=== PATIENT | female | born 1965 | race Hispanic/Latino ===

== ENCOUNTER 2016-12-20 22:14 | Emergency (ER) | payer BC ==
[2016-12-20 22:25] VITALS: BP 128/64; PULSE 88; RESP 16; TEMP 96.7; O2SAT 96
[2016-12-20] MEDS: Sodium Chloride 0.9% 1,000 ML IV STA (22:47)
--- NOTE | 2016-12-20 22:47 | ED PDOC ---
HPI: Abdomen Time Seen by Provider: 12/20/16 22:20 Chief Complaint (Nursing): Abdominal Pain Chief Complaint (Provider): abdominal pain History Per: Patient History/Exam Limitations: no limitations Onset/Duration Of Symptoms: Hrs (5) Current Symptoms Are (Timing): Still Present Location Of Pain/Discomfort: Epigastric Quality Of Discomfort: Cramping, "Pain" Associated Symptoms: Nausea, Vomiting Additional History Per: Patient Additional Complaint(s): 51 y/o female history of colon CA (s/p multiple resections, last september of this year), PCOS presents with epigastric abdominal pain x 5 hours. Patient states she has had little appetite for the last 2 weeks, but no pain. Patient notes today at 16:30 was the first time she tried to eat, a salad. Patient states shortly after that she developed epigastric abdominal pain and had multiple episodes of vomiting. Patient notes blood mixed in with the last vomiting episode. Patient states after vomiting she started experiencing "rectal spasms", which she has had in past and was controlled with Percocet but has not had any episodes in 2 weeks. Denies fever, chest pain, shortness of breath, palpitations, changes in bowel movements, dysuria, hematuria. Past Medical History Reviewed: Historical Data, Nursing Documentation, Vital Signs Vital Signs: Last Vital Signs Temp 96.7 F L 12/20/16 22:24 Pulse 88 12/20/16 22:24 Resp 16 12/20/16 22:24 BP 128/64 12/20/16 22:24 Pulse Ox 96 12/20/16 22:48 - Medical History PMH: Depression, Hypercholesterolemia, Hyperthyroidism, Hypothyroidism, Malignancy (stage 1 rectal cancer) Denies: Chronic Kidney Disease - Surgical History Surgical History: Appendectomy (1976), - Family History Family History: States: Unknown Family Hx - Home Medications Home Medications: Ambulatory Orders Medication Instructions Recorded Acetaminophen [Tylenol Extra 2 tab PO PRN PRN 03/25/16 Strength] Dicyclomine [Bentyl] 20 mg PO PRN PRN 03/25/16 Docusate [Colace] 4 cap PO TID 03/25/16 Levothyroxine [Synthroid] 88 mcg PO DAILY 03/25/16 Magnesium Hydroxide [Milk of 30 ml PO DAILY #0 oral.susp 03/25/16 Magnesia] MetFORMIN [glucoPHAGE] 1,000 mg PO DAILY 03/25/16 Nitroglycerin [Rectiv] 1 appl [place] PRN PRN 03/25/16 Oxycodone HCl/Acetaminophen 1 each PO Q6 PRN #20 tablet 03/25/16 [Percocet 5-325 mg Tablet] Patient Own Control [Patient Own 1 tab PO PRN PRN 03/25/16 Control] Sennosides [Ex-Lax Maximum 2 tab PO PRN PRN 03/25/16 Strength] Spironolactone [Aldactone] 100 mg PO DAILY 03/25/16 Dicyclomine [Bentyl] 20 mg PO TID #21 tab 12/21/16 - Allergies Allergies/Adverse Reactions: Allergies Allergy/AdvReac Type Severity Reaction Status Date / Time No Known Allergies Allergy Verified 12/21/16 00:39 Review of Systems ROS Statement: Except As Marked, All Systems Reviewed And Found Negative Gastrointestinal: Positive for: Nausea, Vomiting, Abdominal Pain Physical Exam - Reviewed Nursing Documentation Reviewed: Yes Vital Signs Reviewed: Yes - Physical Exam Appears: Positive for: Well, Non-toxic, No Acute Distress Head Exam: Positive for: ATRAUMATIC, NORMAL INSPECTION, NORMOCEPHALIC Skin: Positive for: Normal Color Eye Exam: Positive for: Normal appearance ENT: Positive for: Normal ENT Inspection Cardiovascular/Chest: Positive for: Regular Rate, Rhythm Respiratory: Positive for: Normal Breath Sounds Gastrointestinal/Abdominal: Positive for: Bowel Sounds, Soft, Tenderness ( epigastric) Back: Positive for: Normal Inspection Extremity: Positive for: Normal ROM Neurologic/Psych: Positive for: Alert, Oriented - Laboratory Results Result Diagrams: 12/20/16 22:44 12/20/16 22:55 - ECG O2 Sat by Pulse Oximetry: 96 - Progress ED Course And Treament: labs, IV fluids, IV zofran, IV pepcid, IV morphine On re-eval, patient still complaining of pain; second dose IV morphine ordered. CT abd/pelvis ordered EXAM: CT Abdomen and Pelvis With Intravenous Contrast CLINICAL HISTORY: 51 years old, female; Pain; Abdominal pain; Generalized; Prior surgery; Surgery date: 6+ months; Surgery type: Colon resection; Additional info: Abd pain, vomiting, diarrhea h/ o colon ca resectio TECHNIQUE: Axial computed tomography images of the abdomen and pelvis with intravenous contrast. This CT exam was performed using one or more of the following dose reduction techniques : automated exposure control, adjustment of the mA and/or kV according to patient size, and/ or use of iterative reconstruction technique. Coronal and sagittal reformatted images were created and reviewed. CONTRAST: 95 mL of [id number] administered intravenously. EXAM DATE/TIME: Exam ordered 12/21/2016 12:19 AM COMPARISON: CT - ABD PELVIS PO IV CONTRAST 03/25/2016 12:46:27 AM FINDINGS: Lower thorax: Small granuloma left lower lobe. ABDOMEN: Liver: Fatty liver. Gallbladder and bile ducts: Unremarkable. No calcified stones. No ductal dilation. Pancreas: Unremarkable. No mass. No ductal dilation. Spleen: Unremarkable. No splenomegaly. Adrenals: Stable left adrenal thickening probably benign. Kidneys and ureters: Unremarkable. No solid mass. No hydronephrosis. Stomach and bowel: Oral contrast medium in the colon with no evidence of obstruction. There has been a previous colon resection there are few diverticula. There are air-fluid levels in the colon consistent with history diarrhea. Appendix: Appendix not seen. PELVIS: Bladder: Unremarkable. No mass. Reproductive: Unremarkable as visualized. ABDOMEN and PELVIS: Intraperitoneal space: Unremarkable. No free air. No significant fluid collection. Bones/joints: Subtle sclerosis along the inferior margin of the T10 vertebral body is stable. No acute fracture. No dislocation. Soft tissues: Unremarkable. Vasculature: Vascular calcifications. No abdominal aortic aneurysm. Lymph nodes: Unremarkable. No enlarged lymph nodes. IMPRESSION: Oral contrast medium in the colon with no evidence of obstruction. There has been a previous colon resection . there are few diverticula. There are air-fluid levels in the colon consistent with history diarrhea. On re-eval, patient states symptoms have improved. Tolerated PO Patient states she has anti-nausea and a PPI at home, advised to continue as directed. Rx Bentyl provided. Follow up GI. Return to ED for worsening/concerning symptoms. Disposition - Clinical Impression Clinical Impression: Vomiting and diarrhea, Abdominal pain - Patient ED Disposition Is Patient to be Admitted: No Counseled Patient/Family Regarding: Studies Performed, Diagnosis, Need For Followup, Rx Given - Disposition Disposition: Routine/Home Disposition Time: 03:55 Condition: IMPROVED Additional Instructions: Call [facility] today to schedule follow up appointment. Return to ED for worsening/concerning symptoms. Prescriptions: Dicyclomine [Bentyl] 20 mg PO TID #21 tab Instructions: Gastroenteritis (ED)
[2016-12-20 23:03] LABS: BASO # 0.1 K/uL (0.0-0.2); BASO % 0.6 % (0.0-2.0); EOS # 0.2 K/uL (0.0-0.7); EOS % 2.9 % (0.0-4.0); HEMATOCRIT 43.1 % (34.0-47.0); LYMPH % 48.3 % (20.0-40.0); MEAN CELL VOLUME 85.3 fl (81.0-99.0); MEAN CORPUSCULAR HEMOGLOBIN 28.6 pg (27.0-31.0); MEAN CORPUSCULAR HGB CONC 33.5 g/dL (33.0-37.0); MEAN PLATELET VOLUME 9.3 fl (7.2-11.7); MONO # 0.9 K/uL (0.0-0.8); MONO % 10.4 % (0.0-10.0); NEUT # 3.1 K/uL (1.8-7.0); NEUT % 37.8 % (50.0-75.0); NRBC % 0.1 % (0.0-0.0); RED CELL DISTRIBUTION WIDTH 13.1 % (11.5-14.5); WHITE BLOOD COUNT 8.3 K/uL (4.8-10.8)
[2016-12-20 23:14] LABS: ALB/GLOB RATIO 1.2 (1.0-2.1); ALKALINE PHOSPHATASE 130 U/L (38-126); ALT/SGPT 25 U/L (9-52); AST/SGOT 34 U/L (14-36); BILIRUBIN,TOTAL 0.6 mg/dl (0.2-1.3); BLOOD UREA NITROGEN 11 mg/dl (7-17); CALCIUM 10.1 mg/dL (8.4-10.2); CARBON DIOXIDE 24 mmol/L (22-30); CHLORIDE 101 mmol/L (98-107); GFR AFRICAN-AMERICAN > 60; GLUCOSE,RANDOM 129 mg/dL (65-105); LIPASE 86 U/L (23-300); POTASSIUM 3.6 MMOL/L (3.6-5.0); SODIUM 143 mmol/l (132-148); TOTAL PROTEIN 8.6 G/DL (6.3-8.2)
[2016-12-21 00:20] LABS: RBC URINE 4 /hpf (0-3); URINE BACTERIA OCC (<OCC); URINE BILIRUBIN NEGATIVE (NEGATIVE); URINE BLOOD NEGATIVE (NEGATIVE); URINE CALCIUM OXALATE CRYSTALS FEW /hpf (<OCC); URINE COLOR AMBER (YELLOW); URINE GLUCOSE (UA) NEG (Normal); URINE KETONE TRACE mg/dL (NEGATIVE); URINE LEUKOCYTE ESTERASE TRACE Leu/uL (Negative); URINE PROTEIN 100 mg/dL (NEGATIVE); URINE UROBILINOGEN 0.2-1.0 mg/dL (0.2-1.0); WBC URINE 5 /hpf (0-5)
[2016-12-21] MEDS: Iohexol 240 (50 ml) PO ONE (00:24)
[2016-12-21] MEDS ORDERED: Sodium Chloride 0.9% 50 ML IV ONE (02:15)
[2016-12-21] MEDS ORDERED: Iohexol 300 100 ML IJ ONE (02:15)
--- NOTE | 2016-12-21 09:28 | CT ---
PROCEDURE: CT Abdomen and Pelvis with contrast HISTORY: Abdominal pain, vomiting, diarrhea h/o colon CA resectio COMPARISON: 03/25/2016 TECHNIQUE: CT scan of the abdomen and pelvis was performed after administration intravenous contrast. Oral contrast was administered. Coronal and sagittal reformatted images were obtained. Contrast dose: 95 mL Omnipaque 300 Radiation dose: Total exam DLP = mGy-cm. This CT exam was performed using one or more of the following dose reduction techniques: Automated exposure control, adjustment of the mA and/or kV according to patient size, and/or use of iterative reconstruction technique. FINDINGS: LOWER THORAX: The lung bases are clear. LIVER: The liver is normal in size and there is homogeneous enhancement without focal lesion. There is diffuse low-attenuation in the liver No intrahepatic biliary ductal dilatation. GALLBLADDER AND BILE DUCTS: The gallbladder is well distended without evidence of gallstones, wall thickening or pericholecystic fluid. PANCREAS: The pancreas is normal in size and there is homogeneous enhancement without ductal dilatation or focal mass. SPLEEN: The spleen is normal in size and there is homogeneous enhancement without focal lesion. ADRENALS: Both adrenal glands are normal in size without discrete nodule. KIDNEYS AND URETERS: Both kidneys are normal in size and there is homogeneous enhancement without hydronephrosis or focal mass. VASCULATURE: The aorta is normal in caliber. No aortic aneurysm. Early atherosclerotic aortoiliac calcifications. BOWEL: The small bowel loops are normal in caliber. Status post partial sigmoid colon resection. There are few left colonic diverticula. APPENDIX: Not distinctly identified. PERITONEUM: No free fluid. No free air. LYMPH NODES: No enlarged lymph nodes. BLADDER: Partially decompressed. REPRODUCTIVE: The uterus is normal in size. BONES: No acute fracture. Within normal limits for the patient's age. OTHER FINDINGS: None. IMPRESSION: Status post partial sigmoid colon resection, few colonic diverticula without CT evidence for acute diverticulitis. No evidence of bowel obstruction, wall thickening or dilatation. Hepatic steatosis. A preliminary report was provided by [facility].
--- NOTE | 2016-12-21 12:24 | CARD ---
APPROVED REPORT EKG Measurement Heart [id number] <Conclusion> Normal sinus rhythm Normal ECG
== END 2016-12-21 04:19 | disposition home or self-care (01) ==
LOC: H.ER 22:14
DX: R10.13 Epigastric pain (principal); R11.10 Vomiting, unspecified; R19.7 Diarrhea, unspecified; E78.00 Pure hypercholesterolemia, unspecified; N39.0 Urinary tract infection, site not specified; Z79.84 Long term (current) use of oral hypoglycemic drugs; Z85.038 Personal history of other malignant neoplasm of large intestine; Z85.048 Personal history of other malignant neoplasm of rectum, rectosigmoid junction, and anus; Z90.49 Acquired absence of other specified parts of digestive tract
CPT/HCPCS: 74177; 80053; 81003; 81025; 83690; 85025; 93005; 96361; 96374; 96375; 96376; 99282; J2270; J2405; J7040; Q9966; Q9967

== ENCOUNTER 2016-12-27 20:37 | Emergency (ER) | payer BC ==
[2016-12-27 20:47] VITALS: BP 152/90; PULSE 106; RESP 16; TEMP 98.5; O2SAT 100
[2016-12-27] MEDS ORDERED: Sodium Chloride 0.9% 1,000 ML IV STA (21:15)
[2016-12-27 21:51] LABS: BASO % 0.7 % (0.0-2.0); EOS # 0.2 K/uL (0.0-0.7); EOS % 3.3 % (0.0-4.0); HEMATOCRIT 38.6 % (34.0-47.0); LYMPH # 2.1 K/uL (1.0-4.3); MEAN CELL VOLUME 86.8 fl (81.0-99.0); MEAN CORPUSCULAR HEMOGLOBIN 28.6 pg (27.0-31.0); MEAN PLATELET VOLUME 8.8 fl (7.2-11.7); MONO # 0.5 K/uL (0.0-0.8); MONO % 9.4 % (0.0-10.0); NEUT # 2.2 K/uL (1.8-7.0); NEUT % 44.6 % (50.0-75.0); NRBC % 0.1 % (0.0-0.0); RED CELL DISTRIBUTION WIDTH 13.1 % (11.5-14.5)
[2016-12-27 22:08] LABS: ALB/GLOB RATIO 1.2 (1.0-2.1); ALKALINE PHOSPHATASE 108 U/L (38-126); ALT/SGPT 38 U/L (9-52); AST/SGOT 26 U/L (14-36); BILIRUBIN,TOTAL 0.4 mg/dl (0.2-1.3); BLOOD UREA NITROGEN 6 mg/dl (7-17); CALCIUM 9.3 mg/dL (8.4-10.2); CARBON DIOXIDE 28 mmol/L (22-30); CHLORIDE 103 mmol/L (98-107); GFR AFRICAN-AMERICAN > 60; GLUCOSE,RANDOM 93 mg/dL (65-105); LIPASE 67 U/L (23-300); POTASSIUM 4.1 MMOL/L (3.6-5.0); SODIUM 145 mmol/l (132-148); TOTAL PROTEIN 6.8 G/DL (6.3-8.2)
[2016-12-27 23:31] LABS: RBC URINE 1 /hpf (0-3); URINE BILIRUBIN NEGATIVE (NEGATIVE); URINE BLOOD NEGATIVE (NEGATIVE); URINE COLOR YELLOW (YELLOW); URINE GLUCOSE (UA) NEG (Normal); URINE KETONE NEGATIVE (NEGATIVE); URINE LEUKOCYTE ESTERASE NEG Leu/uL (Negative); URINE PROTEIN NEGATIVE (NEGATIVE); URINE UROBILINOGEN 0.2-1.0 mg/dL (0.2-1.0); WBC URINE 1 /hpf (0-5)
--- NOTE | 2016-12-27 23:36 | ED PDOC ---
HPI: Abdomen Time Seen by Provider: 12/27/16 20:52 Chief Complaint (Nursing): GI Problem Chief Complaint (Provider): abd pain History Per: Patient History/Exam Limitations: no limitations Onset/Duration Of Symptoms: Hrs Outside of [place] travel?: No Current Symptoms Are (Timing): Still Present Location Of Pain/Discomfort: Diffuse Additional Complaint(s): 51yo female with PMHx including colon cancer presents to the ED with c/o abdominal pain with associated v/d. Patient was at her [facility] today having an endoscopy and was told she woke up in the middle of the endoscopy and it was not able to be completed because there was too much food in her stomach. Given preliminary Dx of gastroparesis. Patient reports vomiting x3 today, non- bloody and non-bilious with diarrhea and diffuse abdominal pain upper and lower. Past Medical History Reviewed: Historical Data, Nursing Documentation, Vital Signs Vital Signs: Last Vital Signs Temp 98.5 F 12/27/16 20:42 Pulse 106 H 12/27/16 20:42 Resp 16 12/27/16 20:42 BP 152/90 H 12/27/16 20:42 Pulse Ox 100 12/28/16 02:12 - Medical History PMH: Depression, Hypercholesterolemia, Hyperthyroidism, Hypothyroidism, Malignancy (stage 1 rectal cancer) Denies: Chronic Kidney Disease - Surgical History Surgical History: Appendectomy (1976), - Family History Family History: States: No Known Family Hx - Home Medications Home Medications: Ambulatory Orders Medication Instructions Recorded Acetaminophen [Tylenol Extra 2 tab PO PRN PRN 03/25/16 Strength] Dicyclomine [Bentyl] 20 mg PO PRN PRN 03/25/16 Docusate [Colace] 4 cap PO TID 03/25/16 Levothyroxine [Synthroid] 88 mcg PO DAILY 03/25/16 Magnesium Hydroxide [Milk of 30 ml PO DAILY #0 oral.susp 03/25/16 Magnesia] MetFORMIN [glucoPHAGE] 1,000 mg PO DAILY 03/25/16 Nitroglycerin [Rectiv] 1 appl [place] PRN PRN 03/25/16 Oxycodone HCl/Acetaminophen 1 each PO Q6 PRN #20 tablet 03/25/16 [Percocet 5-325 mg Tablet] Patient Own Control [Patient Own 1 tab PO PRN PRN 03/25/16 Control] Sennosides [Ex-Lax Maximum 2 tab PO PRN PRN 03/25/16 Strength] Spironolactone [Aldactone] 100 mg PO DAILY 03/25/16 Dicyclomine [Bentyl] 20 mg PO TID #21 tab 12/21/16 Famotidine [Pepcid] 20 mg PO BID #30 tab 12/28/16 Ondansetron [Zofran] 4 mg PO Q8H #12 tab 12/28/16 - Allergies Allergies/Adverse Reactions: Allergies Allergy/AdvReac Type Severity Reaction Status Date / Time No Known Allergies Allergy Verified 12/27/16 20:40 Review of Systems ROS Statement: Except As Marked, All Systems Reviewed And Found Negative Gastrointestinal: Positive for: Vomiting, Abdominal Pain, Diarrhea Physical Exam - Reviewed Nursing Documentation Reviewed: Yes Vital Signs Reviewed: Yes - Physical Exam Appears: Positive for: Well, No Acute Distress Head Exam: Positive for: ATRAUMATIC, NORMAL INSPECTION, NORMOCEPHALIC Skin: Positive for: Normal Color, Warm, Dry Eye Exam: Positive for: Normal appearance, EOMI, PERRL ENT: Positive for: Normal ENT Inspection Neck: Positive for: Normal, Painless ROM, Supple Cardiovascular/Chest: Positive for: Regular Rate, Rhythm. Negative for: Murmur , Tachycardia Respiratory: Positive for: Normal Breath Sounds. Negative for: Wheezing, Respiratory Distress Gastrointestinal/Abdominal: Positive for: Bowel Sounds, Soft, Tenderness (mild tenderness to epigastrium ). Negative for: Guarding, Rebound Back: Positive for: Normal Inspection. Negative for: L CVA Tenderness, R CVA Tenderness Extremity: Positive for: Normal ROM. Negative for: Deformity, Swelling Neurologic/Psych: Positive for: Alert, Oriented. Negative for: Motor/Sensory Deficits - Laboratory Results Result Diagrams: 12/27/16 21:36 12/27/16 21:36 - ECG O2 Sat by Pulse Oximetry: 100 Pulse Ox Interpretation: Normal (RA) Medical Decision Making Medical Decision Makin: Impression: gastroparesis vs. gastroenteritis vs. chronic abdominal pain Plan: Labs Morphine 2mg IVP, Zofran 4mg IVP, IVF, Pepcid 20mg IVP, Reglan 10mg IVP reassess 0210: Patient feeling a lot better. Tolerating PO. Reports that Pepcid helped a lot. Patient will f/u w/ GI doctor at [place] tomorrow. Stable for d/c and return precautions given. Scribe Attestation: Documented by Imtiaz Serrano acting as a scribe for Giovani Gaona MD. Provider Scribe Attestation: All medical record entries made by the Scribe were at my direction and personally dictated by me. I have reviewed the chart and agree that the record accurately reflects my personal performance of the history, physical exam, medical decision making, and the department course for this patient. I have also personally directed, reviewed, and agree with the discharge instructions and disposition. Disposition - Clinical Impression Clinical Impression: Gastroenteritis, Abdominal pain - Patient ED Disposition Is Patient to be Admitted: No - Disposition Disposition: Routine/Home Disposition Time: 02:10 Condition: IMPROVED Additional Instructions: Please followup with your GI doctor tomorrow at [place]. Please return to the ER if the vomiting persists or any other concerning symptoms come up. Prescriptions: Famotidine [Pepcid] 20 mg PO BID #30 tab Ondansetron [Zofran] 4 mg PO Q8H #12 tab Instructions: Acute Nausea and Vomiting (ED), Abdominal Pain (ED)
[2016-12-28] MEDS ORDERED: Sodium Chloride 0.9% 1,000 ML IV STA (00:33)
== END 2016-12-28 02:30 | disposition home or self-care (01) ==
LOC: H.ER 20:37
DX: K52.9 Noninfective gastroenteritis and colitis, unspecified (principal)
CPT/HCPCS: 80053; 81003; 83690; 85025; 87086; 96361; 96374; 96375; 99282; J2270; J2405; J2765; J7040

== ENCOUNTER 2017-02-27 20:59 | Observation (INO) | payer BC ==
[2017-02-27] MEDS ORDERED: Sodium Chloride 0.9% 1,000 ML IV STA (21:15)
--- NOTE | 2017-02-27 21:43 | ED PDOC ---
HPI: Abdomen Time Seen by Provider: 02/27/17 21:12 Chief Complaint (Nursing): Abdominal Pain Chief Complaint (Provider): abd pain, chest pain, SOB History Per: Patient History/Exam Limitations: no limitations Onset/Duration Of Symptoms: Hrs (2) Outside of [place] travel?: No Current Symptoms Are (Timing): Still Present Additional Complaint(s): Nimisha Hyatt, a 51 year old female, with a past medical history of colon cancer and colon resection presents to the ED with c/o abd pain, chest pain, and SOB x 2 hours [employer]. The patient reports she had 1 episode of diarrhea yesterday and today experienced n/v every time she tried to eat. She reports that she was recently discharged on February 13 from [facility] where her treating physicians are. The patients states she was diagnosed with Kidney failure but is not on dialysis as she was told it was "temporary". Past Medical History Reviewed: Historical Data, Nursing Documentation, Vital Signs Vital Signs: Last Vital Signs Temp 97.8 F 02/27/17 21:06 Pulse 109 H 02/27/17 21:06 Resp 20 02/27/17 21:06 BP 115/78 02/27/17 21:06 Pulse Ox 100 02/28/17 01:34 - Medical History PMH: Depression, Hypercholesterolemia, Hyperthyroidism, Hypothyroidism, Malignancy (stage 1 rectal cancer) Denies: Chronic Kidney Disease Other PMH: Colon cancer - Surgical History Surgical History: Appendectomy (1976), Other surgeries: Colon resection - Family History Family History: States: Unknown Family Hx - Home Medications Home Medications: Ambulatory Orders Medication Instructions Recorded Acetaminophen [Tylenol Extra 2 tab PO PRN PRN 03/25/16 Strength] Dicyclomine [Bentyl] 20 mg PO PRN PRN 03/25/16 Docusate [Colace] 4 cap PO TID 03/25/16 Levothyroxine [Synthroid] 88 mcg PO DAILY 03/25/16 Magnesium Hydroxide [Milk of 30 ml PO DAILY #0 oral.susp 03/25/16 Magnesia] MetFORMIN [glucoPHAGE] 1,000 mg PO DAILY 03/25/16 Nitroglycerin [Rectiv] 1 appl [place] PRN PRN 03/25/16 Oxycodone HCl/Acetaminophen 1 each PO Q6 PRN #20 tablet 07/16/16 [Percocet 5-325 mg Tablet] Patient Own Control [Patient Own 1 tab PO PRN PRN 03/25/16 Control] Sennosides [Ex-Lax Maximum 2 tab PO PRN PRN 03/25/16 Strength] Spironolactone [Aldactone] 100 mg PO DAILY 03/25/16 Dicyclomine [Bentyl] 20 mg PO TID #21 tab 12/21/16 Famotidine [Pepcid] 20 mg PO BID #30 tab 12/28/16 Ondansetron [Zofran] 4 mg PO Q8H #12 tab 12/28/16 - Allergies Allergies/Adverse Reactions: Allergies Allergy/AdvReac Type Severity Reaction Status Date / Time No Known Allergies Allergy Verified 12/27/16 20:40 Review of Systems ROS Statement: Except As Marked, All Systems Reviewed And Found Negative Cardiovascular: Positive for: Chest Pain Respiratory: Positive for: Shortness of Breath Gastrointestinal: Positive for: Nausea, Vomiting, Abdominal Pain, Diarrhea Physical Exam - Reviewed Nursing Documentation Reviewed: Yes Vital Signs Reviewed: Yes - Physical Exam Appears: Positive for: Non-toxic, No Acute Distress, Uncomfortable Head Exam: Positive for: ATRAUMATIC, NORMOCEPHALIC Skin: Positive for: Warm, Dry, Pallor Eye Exam: Positive for: Normal appearance, EOMI, PERRL ENT: Positive for: Other (tacky mucous membranes ). Negative for: Pharyngeal Erythema, Tonsillar Exudate, Tonsillar Swelling Neck: Positive for: Normal, Painless ROM, Supple Cardiovascular/Chest: Positive for: Regular Rate, Rhythm, Chest Non Tender. Negative for: Tachycardia Respiratory: Positive for: Normal Breath Sounds. Negative for: Wheezing, Respiratory Distress Gastrointestinal/Abdominal: Positive for: Bowel Sounds, Soft, Tenderness ( Diffuse abdominal tenderness.) Back: Positive for: Normal Inspection Extremity: Positive for: Normal ROM. Negative for: Tenderness, Pedal Edema, Deformity, Swelling Neurologic/Psych: Positive for: Alert, Oriented, Mood/Affect (anxious), Gait - Laboratory Results Result Diagrams: 02/27/17 21:48 02/27/17 21:48 - ECG O2 Sat by Pulse Oximetry: 100 (RA) Pulse Ox Interpretation: Normal Medical Decision Making Medical Decision Makin:12 Initial Impression: 51 year old female presenting with chest pain and abdominal pain in setting of known colon CA Initial Plan: * EKG * CMP * Lipase * Troponin 1 * Upreg * Udip * CBC * CXR * Morphine 4mg IVP * NS 1000mls IV 1000mls/hr * Pepcid 20mg IV * Zofran 4mg IV * Accucheck * Urinalysis * Reevaluation 2229: Son now at bedside and provided additional hx. Son states he believes mother is experiencing opiate withdrawal and surreptitiously takes opiates based on how she has been behaving. Labs reviewed, show low CO2 consistent with dehydration. Patient verbalized chest discomfort. CT chest and A/P ordered. 0116: CT angio chest impression: No pulmonary embolism. 0118: CT A/P impression: 1. Large volume of stool in the rectum consistent with constipation. 2. Fluid in the right colon consistent with diarrhea. 0128: UDS reviewed with patient who states she takes adderall for ADHD, percocet for pain, and xanax for anxiety accounting for positives found on UDS. Patient will be placed on obs status for dehydration and chest pain. Case referred to Dr. Willingham for observation placement. Dx: dehydration, chest pain fair - Scribe Attestation Documented by Verónica Contreras and Imtiaz Zaragoza acting as scribes for Levi Romero MD. Provider Attestation: All medical record entries made by the Scribe were at my direction and personally dictated by me. I have reviewed the chart and agree that the record accurately reflects my personal performance of the history, physical exam, medical decision making, and the department course for this patient. I have also personally directed, reviewed, and agree with the discharge instructions and disposition. Disposition - Clinical Impression Clinical Impression: Dehydration, Chest pain - Disposition Disposition Time: 23:30 Condition: FAIR - Pt Status Changed To: Hospital Disposition Of: Observation
[2017-02-27 22:01] LABS: BASO % 0.5 % (0.0-2.0); EOS # 0.1 K/uL (0.0-0.7); EOS % 0.8 % (0.0-4.0); HEMATOCRIT 43.1 % (34.0-47.0); LYMPH % 43.9 % (20.0-40.0); MEAN CELL VOLUME 88.1 fl (81.0-99.0); MEAN CORPUSCULAR HGB CONC 32.9 g/dL (33.0-37.0); MEAN PLATELET VOLUME 9.8 fl (7.2-11.7); MONO # 0.4 K/uL (0.0-0.8); MONO % 4.8 % (0.0-10.0); NEUT # 4.6 K/uL (1.8-7.0); NRBC % 0.1 % (0.0-0.0); RED CELL DISTRIBUTION WIDTH 14.6 % (11.5-14.5); WHITE BLOOD COUNT 9.1 K/uL (4.8-10.8)
[2017-02-27 22:25] LABS: ALB/GLOB RATIO 1.3 (1.0-2.1); ALKALINE PHOSPHATASE 190 U/L (38-126); ALT/SGPT 21 U/L (9-52); AST/SGOT 46 U/L (14-36); BILIRUBIN,TOTAL 1.6 mg/dl (0.2-1.3); BLOOD UREA NITROGEN 21 mg/dl (7-17); CALCIUM 10.7 mg/dL (8.4-10.2); CARBON DIOXIDE 14 mmol/L (22-30); CHLORIDE 102 mmol/L (98-107); GFR AFRICAN-AMERICAN 52; GLUCOSE,RANDOM 145 mg/dL (65-105); LIPASE 58 U/L (23-300); SODIUM 138 mmol/l (132-148); TOTAL PROTEIN 9.6 G/DL (6.3-8.2)
[2017-02-27 22:31] LABS: POTASSIUM 5.4 MMOL/L (3.6-5.0)
[2017-02-27] MEDS ORDERED: Iohexol 240 (50 ml) PO ONE (22:34)
[2017-02-28] MEDS ORDERED: Sodium Chloride 0.9% 1,000 ML IV STA (00:58)
[2017-02-28 01:13] LABS: RBC URINE 2 /hpf (0-3); URINE BACTERIA RARE (<OCC); URINE BILIRUBIN NEGATIVE (NEGATIVE); URINE BLOOD NEGATIVE (NEGATIVE); URINE COLOR YELLOW (YELLOW); URINE GLUCOSE (UA) NEG (Normal); URINE KETONE 20 mg/dL (NEGATIVE); URINE LEUKOCYTE ESTERASE SMALL Leu/uL (Negative); URINE PROTEIN NEGATIVE (NEGATIVE); URINE UROBILINOGEN 0.2-1.0 mg/dL (0.2-1.0); WBC URINE 6 /hpf (0-5)
--- NOTE | 2017-02-28 08:02 | CT ---
PROCEDURE: CT Chest with contrast (Pulmonary Angiogram) HISTORY: chest pain r/o PE COMPARISON: None available. TECHNIQUE: Axial computed tomography images were obtained of the chest in the pulmonary arterial phase of enhancement. Coronal and sagittal reformatted images were created and reviewed. Intravenous contrast dose: 95 cc 3 Visipaque 320 Radiation dose: Total exam DLP = mGy-cm. This CT exam was performed using one or more of the following dose reduction techniques: Automated exposure control, adjustment of the mA and/or kV according to patient size, and/or use of iterative reconstruction technique. FINDINGS: PULMONARY ARTERIES: Unremarkable. No pulmonary embolism. AORTA: No acute findings. No thoracic aortic aneurysm. LUNGS: Unremarkable. No nodule, mass or pulmonary consolidation. PLEURAL SPACES: Unremarkable. No effusion or pneuomothorax. HEART: Unremarkable. No cardiomegaly. No significant pericardial effusion. LYMPH NODES: No lymphadenopathy. BONES, CHEST WALL: Unremarkable. No fracture or destructive lesion OTHER FINDINGS: Unremarkable. IMPRESSION: Unremarkable CT pulmonary angiogram. No pulmonary embolus.
--- NOTE | 2017-02-28 08:11 | CT ---
PROCEDURE: CT Abdomen and Pelvis with contrast HISTORY: abd pain/diarrhea COMPARISON: 12/21/2016 TECHNIQUE: Contrast dose: 95 cc Visipaque 320 Radiation dose: Total exam DLP = 1216.7 mGy-cm. (This is with also the pulmonary angio chest CTA exam) This CT exam was performed using one or more of the following dose reduction techniques: Automated exposure control, adjustment of the mA and/or kV according to patient size, and/or use of iterative reconstruction technique. FINDINGS: LOWER THORAX: Unremarkable. LIVER: Unremarkable. No gross lesion or ductal dilatation. GALLBLADDER AND BILE DUCTS: Unremarkable. PANCREAS: Unremarkable. No gross lesion or ductal dilatation. SPLEEN: Unremarkable. ADRENALS: Unremarkable. No mass. KIDNEYS AND URETERS: Unremarkable. No hydronephrosis. No solid mass. VASCULATURE: Unremarkable. No aortic aneurysm. BOWEL: Fluid and stool in the cecum. No obstruction. No gross mural thickening. Sigmoid anastomotic sutures noted consistent with surgical intervention -similar-appearing APPENDIX: Not identified PERITONEUM: Minimal amount of free fluid in the right cul-de-sac - this may be physiologic in this 51-year-old female. No free air. LYMPH NODES: Unremarkable. No enlarged lymph nodes. BLADDER: Unremarkable. REPRODUCTIVE: Unremarkable. BONES: No acute fracture. OTHER FINDINGS: None. IMPRESSION: No bowel obstruction. Fluid-filled and stool filled cecum No pericolonic inflammatory changes here. . No diverticulitis. No gross mass seen. Prior sigmoid postsurgical changes Preliminary report provided by Krissy strange
--- NOTE | 2017-02-28 09:19 | RAD ---
HISTORY: SOB COMPARISON: No prior. FINDINGS: LUNGS: No active pulmonary disease. 2 to 3 mm granuloma at the right lung apex is suggested. The angio chest PE study started below this level. With attention to the pulmonary pulmonary arteries PLEURA: No significant pleural effusion identified, no pneumothorax apparent. CARDIOVASCULAR: Normal. OSSEOUS STRUCTURES: Dextroscoliosis VISUALIZED UPPER ABDOMEN: Normal. OTHER FINDINGS: None. IMPRESSION: 2 to 3 mm right apical granuloma most likely. Consider comparison with any outside exams to ensure stability. This area is above the axial plane for recurrent angio chest PE study and hence not assessed on that exam No consolidation, pleural effusion or thickening. Dextroscoliosis
[2017-02-28] MEDS ORDERED: Oxycodone/Acetaminophen 5/325 mg Tab PO PRN (12:30)
[2017-02-28] MEDS ORDERED: Simethicone 80 mg Chewtab PO PRN (14:26)
[2017-02-28] MEDS: Levothyroxine 88 MCG TAB PO SCH (14:50)
--- NOTE | 2017-02-28 15:36 | CARD ---
APPROVED REPORT EKG Measurement Heart [id number] [id number] <Conclusion> Sinus rhythm with marked sinus arrhythmia Otherwise normal ECG
[2017-02-28 16:11] LABS: BLOOD UREA NITROGEN 11 mg/dl (7-17); CALCIUM 9.9 mg/dL (8.4-10.2); CARBON DIOXIDE 20 mmol/L (22-30); CHLORIDE 107 mmol/L (98-107); GFR AFRICAN-AMERICAN > 60; GLUCOSE,RANDOM 96 mg/dL (65-105); SODIUM 141 mmol/l (132-148)
[2017-02-28] MEDS: Sodium Chloride 0.9% 1,000 ML IV SCH (16:30)
[2017-03-01 00:07] VITALS: RESP 18
[2017-03-01 02:08] LABS: RBC URINE 1 /hpf (0-3); URINE BILIRUBIN NEGATIVE (NEGATIVE); URINE BLOOD NEGATIVE (NEGATIVE); URINE COLOR STRAW (YELLOW); URINE GLUCOSE (UA) NEG (Normal); URINE KETONE TRACE mg/dL (NEGATIVE); URINE LEUKOCYTE ESTERASE NEG Leu/uL (Negative); URINE PROTEIN NEGATIVE (NEGATIVE); URINE UROBILINOGEN 0.2-1.0 mg/dL (0.2-1.0); WBC URINE < 1 /hpf (0-5)
[2017-03-01] MEDS: Sodium Chloride 0.9% 1,000 ML IV SCH (05:38)
[2017-03-01] MEDS: Levothyroxine 88 MCG TAB PO SCH (08:48)
[2017-03-01] MEDS ORDERED: Magnesium Hydroxide Susp 30 ml UD PO SCH (09:00)
[2017-03-01 13:11] VITALS: BP 104/65; PULSE 85; TEMP 97.9; O2SAT 97
--- NOTE | 2017-03-01 17:28 | CP.PCM.PN ---
Subjective - Date & Time of Evaluation Date of Evaluation: 03/01/17 Time of Evaluation: 10:40 - Subjective Subjective: feels better Objective - Vital Signs/Intake and Output Vital Signs (last 24 hours): Temp Pulse Resp BP Pulse Ox 97.9 F 85 18 104/65 97 03/01/17 13:00 03/01/17 13:00 03/01/17 13:00 03/01/17 13:00 03/01/17 13:00 - Labs Labs: 02/28/17 15:51 - GI/Abdominal Exam GI & Abdominal Exam: Soft, Normal Bowel Sounds Assessment and Plan - Assessment and Plan (Free Text) Assessment: 51 yo with gastroparesis reglan prn laxatives prn dcplanning
--- NOTE | 2017-03-02 22:03 | CON ---
DATE: 02/28/2017 REFERRING PHYSICIAN: Dr. Willingham. REASON FOR CONSULTATION: Nausea, vomiting and constipation. HISTORY OF PRESENT ILLNESS: This is a 51-year-old female with history of colon cancer resection comp laining of abdominal pain, chest pain, nausea and vomiting and some constipation for a couple of days prior to admission. The patient was admitted to [facility] for dialysis. The patient says she has gastroparesis which is documented on gastric emptying film which is delayed. She has taken Reglan at some point, but has not taken it in a while. Currently lying in bed comfortable, in no apparent dis tress. PAST MEDICAL HISTORY: As above. PAST SURGICAL HISTORY: As above. MEDICATIONS: Have been reviewed. REVIEW OF SYSTEMS: All systems have been reviewed and are negative except for those positive in the HPI. PHYSICAL EXAMINATION: VITAL SIGNS: Here in the hospital are grossly unremarkable. GENERAL: The patient is a pleasant, elderly-appearing female lying in bed, comfortable, in no appare nt distress. HEAD: Normocephalic, atraumatic. EYES: Pupils equally reactive to light bilaterally. No conjunctival pallor or icterus. NECK: Supple, normal range of motion. No lymphadenopathy appreciated. LUNGS: Coarse breath sounds bilaterally. HEART: S1, S2. Regular rate and rhythm. No murmurs appreciated. ABDOMEN: Soft, nontender. Some discomfort. No rebound, guarding or masses. RECTAL: Deferred. EXTREMITIES: Pulses present bilaterally. SKIN: Warm, dry and intact. NEUROLOGIC: Alert and oriented x 3. LABORATORY DATA: Labs reviewed. WBC 9.1, hemoglobin is stable at 14.2. Potassium is 5.4. Total bi lirubin is 1.6, AST 46, alkaline phosphatase 190, glucose of 145. CAT scan of abdomen and pelvis bayron cribes minimal amount of fluid in the cul-de-sac. No bowel obstruction though there is . ASSESSMENT AND PLAN: A 51-year-old female with colon cancer resection. This is more than likely an episode of gastroparetic flare from GI standpoint. A couple doses of Reglan, some Zofran, and PPI. Advance diet slowly and laxatives as needed. Thank you for the consult. Wyatt Esquivel MD, PhD cc:Tien Willingham MD [id number] TT: 03/02/2017 22:03:07 Confirmation # [id number] Dictation # [id number]
== END 2017-03-01 15:40 | disposition home or self-care (01) ==
LOC: H.ER 20:59 → H.ERHOLD 02-28 01:22 → H.TEL 02-28 03:05
PROVIDERS: ADMIT Family Medicine; ATTEND Family Medicine
DX: K31.84 Gastroparesis (principal); E86.0 Dehydration; R07.89 Other chest pain; E03.9 Hypothyroidism, unspecified; E78.00 Pure hypercholesterolemia, unspecified; F32.9 Major depressive disorder, single episode, unspecified; Z85.048 Personal history of other malignant neoplasm of rectum, rectosigmoid junction, and anus
CPT/HCPCS: 36415; 71010; 71275; 74177; 80048; 80053; 81003; 81025; 83690; 84484; 85025; 87086; 93005; 96361; 96374; 96375; 96376; 99285; G0378; G0480; J2270; J2405; J7040; Q9966

== ENCOUNTER 2017-05-03 03:43 | Inpatient (IN) | payer BC ==
[2017-05-03] MEDS ORDERED: Sodium Chloride 0.9% 1,000 ML IV STA (04:03)
[2017-05-03 04:13] LABS: BASO # 0.1 K/uL (0.0-0.2); BASO % 0.7 % (0.0-2.0); EOS # 0.2 K/uL (0.0-0.7); EOS % 2.2 % (0.0-4.0); HEMATOCRIT 42.2 % (34.0-47.0); LYMPH # 2.6 K/uL (1.0-4.3); LYMPH % 29.4 % (20.0-40.0); MEAN CORPUSCULAR HEMOGLOBIN 30.1 pg (27.0-31.0); MEAN CORPUSCULAR HGB CONC 34.3 g/dL (33.0-37.0); MONO # 0.7 K/uL (0.0-0.8); NEUT # 5.2 K/uL (1.8-7.0); NEUT % 59.7 % (50.0-75.0); RED CELL DISTRIBUTION WIDTH 13.9 % (11.5-14.5); WHITE BLOOD COUNT 8.7 K/uL (4.8-10.8)
--- NOTE | 2017-05-03 04:16 | ED PDOC ---
HPI: Abdomen Time Seen by Provider: 05/03/17 03:49 Chief Complaint (Nursing): Abdominal Pain Chief Complaint (Provider): Abdominal Pain History Per: Patient History/Exam Limitations: no limitations Onset/Duration Of Symptoms: Hrs (x4 hours) Current Symptoms Are (Timing): Still Present Location Of Pain/Discomfort: Epigastric Quality Of Discomfort: Other (feels bloated) Associated Symptoms: Nausea, Vomiting. denies: Diarrhea, Constipation Additional Complaint(s): 51 year old female presents to ED with complaints of epigastric pain x4 hours and has a past medical history of cancer and hypercholesterolemia. (+) nausea and vomiting x1 episode. Notes that she ate spaghetti prior to vomiting. States that she currently feels bloated and confirms that her last bowel movement was yesterday. PCP: [facility] Past Medical History Reviewed: Historical Data, Nursing Documentation, Vital Signs Vital Signs: Last Vital Signs Temp 97.8 F 05/03/17 16:48 Pulse 71 05/03/17 16:48 Resp 20 05/03/17 16:48 BP 118/77 05/03/17 16:48 Pulse Ox 99 05/03/17 16:48 - Medical History PMH: Depression, Hypercholesterolemia, Hyperthyroidism, Hypothyroidism, Malignancy (stage 1 rectal cancer), Chronic Kidney Disease Denies: HIV - Surgical History Surgical History: Appendectomy (1976), - Family History Family History: States: Unknown Family Hx - Social History Current smoker - smoking cessation education provided: No Ex-Smoker (has not smoked in the last 12 months): Yes Alcohol: None Drugs: Denies - Home Medications Home Medications: Ambulatory Orders Medication Instructions Recorded Levothyroxine [Synthroid] 88 mcg PO DAILY 03/25/16 MetFORMIN [glucoPHAGE] 1,000 mg PO DAILY 03/25/16 ALPRAZolam [Xanax] 1 mg PO TID PRN 02/28/17 Aspirin [Ecotrin] 81 mg PO DAILY 05/03/17 Ciprofloxacin [Cipro] 500 mg PO BID 05/03/17 Dicyclomine [Bentyl] 20 mg PO TID PRN 05/03/17 Linaclotide [Linzess] 290 mcg PO DAILY 05/03/17 Ondansetron ODT [Zofran ODT] 8 mg PO Q8H PRN 05/03/17 Pantoprazole Sodium [Protonix] 40 mg PO BID 05/03/17 Vortioxetine Hydrobromide 20 mg PO DAILY 05/03/17 [Trintellix] - Allergies Allergies/Adverse Reactions: Allergies Allergy/AdvReac Type Severity Reaction Status Date / Time No Known Allergies Allergy Verified 12/27/16 20:40 Review of Systems ROS Statement: Except As Marked, All Systems Reviewed And Found Negative Gastrointestinal: Positive for: Nausea, Vomiting (X1), Abdominal Pain ( epigastric). Negative for: Diarrhea, Constipation Physical Exam - Reviewed Nursing Documentation Reviewed: Yes Vital Signs Reviewed: Yes - Physical Exam Appears: Positive for: Non-toxic, No Acute Distress Skin: Positive for: Normal Color, Warm, Dry Eye Exam: Positive for: Normal appearance ENT: Positive for: Normal ENT Inspection Neck: Positive for: Normal Cardiovascular/Chest: Positive for: Regular Rate, Rhythm. Negative for: Murmur Respiratory: Positive for: Normal Breath Sounds. Negative for: Respiratory Distress Gastrointestinal/Abdominal: Positive for: Soft, Tenderness (TTP to epigastric region). Negative for: Normal Exam Back: Positive for: Normal Inspection Extremity: Positive for: Normal ROM. Negative for: Deformity Neurologic/Psych: Positive for: Alert, Oriented. Negative for: Motor/Sensory Deficits - Laboratory Results Result Diagrams: 05/03/17 04:10 05/03/17 04:10 - ECG O2 Sat by Pulse Oximetry: 100 (RA) Pulse Ox Interpretation: Normal Medical Decision Making Medical Decision Makin Initial impression: flare up of gastroparesis Initial plan: * Labs * Lipase * NS IV * Pepcid 10mg IVP * Protonix Inj 40mg IVP * Reglan 10mg IVP * UA * Re-eval 0549 * OBSTRUCTIVE SERIES RAD * E-Z Gas II EFF Granules 1 each PO 0613 * UA Uploading XR OBSTRUCTIVE SERIES to [facility] 0633 XR FINDINGS Lungs: Small calcified granuloma at the right apex. No evidence of air space consolidation. Pleural space: There are no significant pleural effusions. No pneumothorax. Heart: The cardiac size is normal. Mediastinum: Tortuous thoracic aorta. The mediastinal contours are otherwise unremarkable. Intraperitoneal space: There is no evidence of free intraperitoneal air. Gastrointestinal tract: There is a nonspecific bowel gas pattern with gas- filled loops of small and large bowel. There are few mildly distended small bowel loops centrally within the abdomen. Gas and stool is noted distally to the level of the rectum. There are several air-fluid levels within both small bowel and colon. Bones/joints: No acute bony abnormalities. Thoracolumbar scoliosis. Soft tissues: There is postoperative change present. There are surgical clips within the upper abdomen as well as a surgical anastomotic staple line in the region of the rectosigmoid. IMPRESSION: 1. There is no radiographic evidence of an acute cardiopulmonary process. 2. Nonspecific bowel gas pattern which may represent an ileus or gastroenteritis. Early/partial small bowel obstruction cannot be excluded. 3. No evidence of free air. 0647 Patient notes still having cramping abdominal pain and has thus far been unable to have adequate bowel movement. * CTA A/P * Iohexol 50mL PO * ED OBS ADMISSION All further documentation will take place in ED OBS section of the chart. Scribe Attestation: Documented by Yamilka Doty acting as a scribe for Giovani Gaona MD. Scribe Attestation: All medical record entries made by the Scribe were at my direction and personally dictated by me. I have reviewed the chart and agree that the record accurately reflects my personal performance of the history, physical exam, medical decision making, and the department course for this patient. I have also personally directed, reviewed, and agree with the discharge instructions and disposition. ED OBSERVATION Date of observation admission: 05/03/17 Time of observation admission: 06:47 - Observation admission statement Patient is being placed in observation because:: Pending CT - Goals of Observation Goals of observation are:: CT results - Progress Note Progress Note: 05/03/17 07:00 Patient signed out to Dr. Moctezuma pending CT. Disposition - Clinical Impression Clinical Impression: Abdominal pain - Disposition Disposition Time: 06:47 Condition: FAIR Patient Signed Over To: Wyatt Moctezuma III (at 0700 05/03/17) Handoff Comments: Pending CT - Pt Status Changed To: Hospital Disposition Of: Observation
[2017-05-03 04:21] LABS: ALB/GLOB RATIO 1.5 (1.0-2.1); ALKALINE PHOSPHATASE 173 U/L (38-126); ALT/SGPT 46 U/L (9-52); AST/SGOT 31 U/L (14-36); BILIRUBIN,TOTAL 0.6 mg/dl (0.2-1.3); BLOOD UREA NITROGEN 11 mg/dl (7-17); CALCIUM 10.7 mg/dL (8.4-10.2); CARBON DIOXIDE 23 mmol/L (22-30); CHLORIDE 101 mmol/L (98-107); GFR AFRICAN-AMERICAN > 60; GLUCOSE,RANDOM 123 mg/dL (65-105); LIPASE 54 U/L (23-300); SODIUM 142 mmol/l (132-148); TOTAL PROTEIN 8.1 G/DL (6.3-8.2)
[2017-05-03 06:40] LABS: RBC URINE 2 /hpf (0-3); URINE BILIRUBIN NEGATIVE (NEGATIVE); URINE BLOOD NEGATIVE (NEGATIVE); URINE COLOR YELLOW (YELLOW); URINE GLUCOSE (UA) NEG (Normal); URINE KETONE NEGATIVE (NEGATIVE); URINE LEUKOCYTE ESTERASE NEG Leu/uL (Negative); URINE PROTEIN NEGATIVE (NEGATIVE); URINE UROBILINOGEN 0.2-1.0 mg/dL (0.2-1.0); WBC URINE 1 /hpf (0-5)
[2017-05-03] MEDS ORDERED: Iohexol 240 (50 ml) PO ONE (06:47)
[2017-05-03] MEDS ORDERED: Iohexol 240 (50 ml) ONE (06:53)
--- NOTE | 2017-05-03 07:21 | ED PDOC ---
- Laboratory Results Result Diagrams: 05/06/17 05:30 05/06/17 05:30 - ECG O2 Sat by Pulse Oximetry: 100 (RA) Pulse Ox Interpretation: Normal Medical Decision Making Medical Decision Making: Time: --Patient endorsed from Dr. Gaona to me. --Pending CT Scan and reevaluation. ED Observation was ordered at 0647. All further documentation will take place in ED OBS section of the chart.. Scribe Attestation: Documented by Lisa Dias, acting as a scribe for Wyatt Moctezuma MD. Provider Scribe Attestation: All medical record entries made by the Scribe were at my direction and personally dictated by me. I have reviewed the chart and agree that the record accurately reflects my personal performance of the history, physical exam, medical decision making, and the department course for this patient. I have also personally directed, reviewed, and agree with the discharge instructions and disposition. Disposition Counseled Patient/Family Regarding: Studies Performed, Diagnosis - Clinical Impression Clinical Impression: Abdominal pain, Small bowel obstruction - POA Present On Arrival: None - Disposition Disposition: Hospitalized as Observation Patient (in Med/Surg under the care of Dr. Dimas Dowell MD) Disposition Time: 06:47 Condition: FAIR ED OBSERVATION Discharge: Yes Date of observation admission: 05/03/17 Time of observation admission: 06:47 - Observation admission statement Patient is being placed in observation because:: Abdominal pain. - Goals of Observation Goals of observation are:: Goals of observation are for patient's symptoms to resolve. - Progress Note Progress Note: 05/03/17 07:23 --Pending CT Scan and reevaluation. 05/03/17 08:17 --Upon reevaluation, symptoms had not improved. --Toradol 15 mg IVP 05/03/17 09:47 --Patient resting and pending Abd & Pelvis CT scan results. 05/03/17 10:24 --Abd & Pelvis CT FINDINGS: LOWER THORAX: Minor bibasilar atelectasis. No evidence of effusion or basilar pneumothorax. There is tiny hiatal hernia. Heart size is within range of normal. No significant pericardial effusion. LIVER: Liver exhibits normal size measuring approximately 17.5 cm in CC dimension. Mild diffuse fatty hepatic infiltration. No obvious hepatic mass or collection. Portal and splenic veins are opacified. GALLBLADDER AND BILE DUCTS: Gallbladder is physiologically distended. No evidence of intraluminal gallbladder calculi. PANCREAS: Pancreas appears slightly atrophic and fatty replaced. SPLEEN: Spleen exhibits normal size and attenuation pattern without mass collection or calcification. ADRENALS: No adrenal lesions. KIDNEYS AND URETERS: Kidneys demonstrate symmetric nephrograms. No evidence of nephrolithiasis or hydronephrosis. BLADDER: Urinary bladder is incompletely distended which may account for slight thick- walled appearance. The possibility of a cystitis should be excluded with clinical correlation. REPRODUCTIVE: Grossly unremarkable as visualized. APPENDIX: Evaluation of the bowel is somewhat BOWEL: Evaluation of the bowel is somewhat limited due to incomplete opacification. The stomach is incompletely distended which presumably in part accounts for thick-walled appearance. Gastritis or other intrinsic/invasive wall lesion cannot be excluded. There are 2 elliptical shaped metallic like densities apparently within the root of the distal stomach/pylorus region. Clinical correlation recommended. Multiple mildly distended fluid filled loops of mid and distal small bowel noted with wall prominence. . Findings may represent localized enteritis or possibly ileus. Possibility of a diarrheal illness,, partial -intermittent small bowel obstruction versus early complete small bowel obstruction cannot be completely excluded and therefore radiographs of the abdomen 12 hours. . Moderate amount of fluid is seen throughout the large bowel . ; rule out diarrheal illness. Postoperative changes at the level of the sigmoid colon consistent with suture material. The root of the sigmoid at the level of the anastomosis are slightly irregular and thickened which may in part be due to incomplete distention and peristalsis however recurrent tumor must be excluded. . PERITONEUM: Unremarkable. No fluid collection. No free air. LYMPH NODES: No significant on bulky adenopathy. VASCULATURE: No evidence of abdominal aortic aneurysm. BONES: Minor multilevel degenerative spondylosis of the lower thoracic and lumbar spine. No acute compression fractures however minor chronic anterior stature loss of the T11 and T12 segments. Note made of a apparent lumbarized S1 segment. . . There is mild of levoscoliosis. OTHER FINDINGS: None. IMPRESSION: There are multiple on mildly distended fluid filled loops of mid and distal small bowel which also exhibit minimal wall thickening. Additionally, there is also fluid seen throughout the entire colon. Rule out diarrheal illness. . Possibility of a partial/ intermittent or early complete small bowel obstruction not completely excluded therefore followup on plain film radiographs of the abdomen to assess for passage of oral contrast material into the large bowel. . Postoperative changes sigmoid colon with evidence of anastomosis associated with mild irregular wall thickening ; rule out recurrent tumor. Wall thickening of the stomach likely due to incomplete distention however the possibility of gastritis or other intrinsic/invasive wall lesion not excluded. . There are two small elliptical shaped metallic densities seen apparently within the root of the distal stomach. Clinical correlation with surgical history recommended. . . Mild moderate fatty hepatic infiltration. Findings discussed with Dr. Moctezuma at approximately 1015 hrs. with written down and read back verification. 05/03/17 11:17 ---Spoke to radiologist who read CT about findings. 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 Dowell --Patient reports she received a endoscopy and colonoscopy at [facility] about 2 weeks ago and had clips placed on gastrum for bleed and found to have a new colonic mass near to site of prior cancer. 05/03/17 12:16 --Admit to hospital routine: Observation in Med/Surg for abdominal pain, nausea , and small bowel obstruction after consult with Dr. Dimas Dowell MD
[2017-05-03] MEDS ORDERED: Iohexol 300 100 ML IJ ONE (09:03)
[2017-05-03] MEDS ORDERED: Sodium Chloride 0.9% 50 ML IV ONE (09:04)
--- NOTE | 2017-05-03 09:51 | RAD ---
PROCEDURE: Radiographs of the chest and abdomen (obstructive series) HISTORY: History: Carcinoma p/w abd pain COMPARISON: Correlation made with CT scan abdomen pelvis 02/28/2017. Comparison also made with chest radiograph 02/27/2017 TECHNIQUE: AP radiograph of the chest, with upright and supine radiographs of the abdomen. FINDINGS: CHEST: Lungs: Clear. Cardiovascular: Normal size heart. No pulmonary vascular congestion. Pleura: No pleural fluid. No pneumothorax. Other findings: There is a dextroscoliosis in the mid thoracic region. . ABDOMEN AND PELVIS: Bowel: Several nondistended air-filled loops of small bowel present of few of which exhibit air-fluid levels. . Findings are of uncertain etiology though possibility of an ileus versus other early small-bowel obstruction to be considered. . The elliptical shaped metallic densities right parasagittal upper abdomen ; clinical correlation with history recommended. Free air: None. Bones: Unremarkable. Other findings: None. IMPRESSION: No acute cardiopulmonary disease. Rule out Mrs. early small bowel obstruction.
--- NOTE | 2017-05-03 11:49 | CT ---
PROCEDURE: CT and pelvis 05/03/2017. HISTORY: Rule out obstruction in a patient with a history colon cancer. COMPARISON: None. TECHNIQUE: Contiguous axial images of the abdomen and pelvis performed following oral and intravenous injection of approximately 95 cc Omnipaque 300 contrast material. Additional 2 dimensional sagittal and coronal reformats generated. This CT exam was performed using one or more of the following dose reduction techniques: Automated exposure control, adjustment of the mA and/or kV according to patient size, and/or use of iterative reconstruction technique. Radiation dose: Total exam DLP = 825.9 mGy-cm. FINDINGS: LOWER THORAX: Minor bibasilar atelectasis. No evidence of effusion or basilar pneumothorax. There is tiny hiatal hernia. Heart size is within range of normal. No significant pericardial effusion. LIVER: Liver exhibits normal size measuring approximately 17.5 cm in CC dimension. Mild diffuse fatty hepatic infiltration. No obvious hepatic mass or collection. Portal and splenic veins are opacified. GALLBLADDER AND BILE DUCTS: Gallbladder is physiologically distended. No evidence of intraluminal gallbladder calculi. PANCREAS: Pancreas appears slightly atrophic and fatty replaced. SPLEEN: Spleen exhibits normal size and attenuation pattern without mass collection or calcification. ADRENALS: No adrenal lesions. KIDNEYS AND URETERS: Kidneys demonstrate symmetric nephrograms. No evidence of nephrolithiasis or hydronephrosis. BLADDER: Urinary bladder is incompletely distended which may account for slight thick-walled appearance. The possibility of a cystitis should be excluded with clinical correlation. REPRODUCTIVE: Grossly unremarkable as visualized. APPENDIX: Evaluation of the bowel is somewhat BOWEL: Evaluation of the bowel is somewhat limited due to incomplete opacification. The stomach is incompletely distended which presumably in part accounts for thick-walled appearance. Gastritis or other intrinsic/invasive wall lesion cannot be excluded. There are 2 elliptical shaped metallic like densities apparently within the root of the distal stomach/pylorus region. Clinical correlation recommended. Multiple mildly distended fluid filled loops of mid and distal small bowel noted with wall prominence. . Findings may represent localized enteritis or possibly ileus. Possibility of a diarrheal illness,, partial -intermittent small bowel obstruction versus early complete small bowel obstruction cannot be completely excluded and therefore radiographs of the abdomen 12 hours. . Moderate amount of fluid is seen throughout the large bowel . ; rule out diarrheal illness. Postoperative changes at the level of the sigmoid colon consistent with suture material. The root of the sigmoid at the level of the anastomosis are slightly irregular and thickened which may in part be due to incomplete distention and peristalsis however recurrent tumor must be excluded. . PERITONEUM: Unremarkable. No fluid collection. No free air. LYMPH NODES: No significant on bulky adenopathy. VASCULATURE: No evidence of abdominal aortic aneurysm. BONES: Minor multilevel degenerative spondylosis of the lower thoracic and lumbar spine. No acute compression fractures however minor chronic anterior stature loss of the T11 and T12 segments. Note made of a apparent lumbarized S1 segment. . . There is mild of levoscoliosis. OTHER FINDINGS: None. IMPRESSION: There are multiple on mildly distended fluid filled loops of mid and distal small bowel which also exhibit minimal wall thickening. Additionally, there is also fluid seen throughout the entire colon. Rule out diarrheal illness. . Possibility of a partial/ intermittent or early complete small bowel obstruction not completely excluded therefore followup on plain film radiographs of the abdomen to assess for passage of oral contrast material into the large bowel. . Postoperative changes sigmoid colon with evidence of anastomosis associated with mild irregular wall thickening ; rule out recurrent tumor. Wall thickening of the stomach likely due to incomplete distention however the possibility of gastritis or other intrinsic/invasive wall lesion not excluded. . There are two small elliptical shaped metallic densities seen apparently within the root of the distal stomach. Clinical correlation with surgical history recommended. . . Mild moderate fatty hepatic infiltration. Findings discussed with Dr. Moctezuma at approximately 1015 hrs. with written down and read back verification.
[2017-05-03] MEDS: Sodium Chloride 0.9% 1,000 ML IV SCH (12:43)
--- NOTE | 2017-05-03 14:13 | CP.PCM.CON ---
History of Present Illness - History of Present Illness History of Present Illness: General Surgery Consult Note for Dr. Majano CC: Abdominal pain, nausea/vomiting 51 F with PMH of CRC CA s/p laparoscopic proctosigmoidectomy and gastroparesis presents to ED with complaint of Abdominal pain and nausea/vomiting. Patient states that pain started yesterday evening then got worse around midnight. Patient states that she has intermittent bouts of abdominal pain but this felt different. She rates pain as 5/10 currently but 10/10 last night. She describes the pain as constant and cramping located in the epigastrium radiating to her back. She had one episode of vomiting last night at dinner time and episodes of diarrhea today. She had a BMM yesterday as well. She has recent changes in caliber of stool recently and reports a recurrence of her CRC. She follows with Oncologist Dr. Tan at [place]. Vomiting alleviates her pain while palpation and eating/drink exacerbates it. Admits chills, 45 lb weight loss in 3 months, hematochezia. Denies fevers, cp, sob, constipation, hematemesis. PMD: Denies Oncology: Dr. Tan ([place]) GI: Dr. Boyd ([place]) PMH: CRC CA s/p laparoscopic proctosigmoidectomy, Anxiety, Depression, gastroparesis Meds: Patient has someone bringing correct med list Allergy: NKDA PSH: Appendectomy (1996), (1990), laparoscopic proctosigmoidectomy and gastroparesis Hosp: 7 this year for CRC CA and gastroparesis FH: Father - CRC CA at 45 Social: former smoker quit 4 years alexy 1 pack/day for 30 years, ETOH occasionally, denies illicit drug use Review of Systems - Constitutional Constitutional: Chills. absent: Fever - EENT Eyes: absent: Blurred Vision, Change in Vision, Loss of Vision Ears: absent: Tinnitus, Dizziness Nose/Mouth/Throat: absent: Nasal Congestion - Breasts Breasts: absent: Mass, Pain - Cardiovascular Cardiovascular: absent: Acrocyanosis, Chest Pain, Chest Pain at Rest, Chest Pain with Activity, Dyspnea, Irregular Heart Rhythm, Lightheadedness, Syncope - Respiratory Respiratory: absent: Cough, Dyspnea, Hemoptysis, Dyspnea on Exertion, Wheezing - Gastrointestinal Gastrointestinal: Abdominal Pain, Cramping, Diarrhea, Hematochezia, Nausea, Vomiting. absent: Constipation, Hematemesis - Genitourinary Genitourinary: absent: Change in Urinary Stream, Difficulty Urinating, Dysuria - Musculoskeletal Musculoskeletal: Back Pain, Myalgias. absent: Arthralgias, Numbness, Tingling - Integumentary Integumentary: absent: Changing Lesions, New Lesions - Neurological Neurological: absent: Dizziness, Headaches, Lack of Coordination, Loss of Vision , Memory Loss, Sensory Deficit, Syncope, Tingling, Tremor - Psychiatric Additional comments: history of anxiety and depression - Endocrine Endocrine: Fatigue - Hematologic/Lymphatic Hematologic: absent: Easy Bleeding, Easy Bruising, Lymphadenopathy Past Patient History - Infectious Disease Hx of Infectious Diseases: None - Past Medical History & Family History Past Medical History?: Yes - Past Social History Alcohol: None Drugs: Denies - CARDIAC Hx Hypercholesterolemia: Yes - PULMONARY Hx Respiratory Disorders: No (Former smoker) - NEUROLOGICAL Hx Neurological Disorder: No - HEENT Hx HEENT Problems: No - RENAL Hx Chronic Kidney Disease: Yes - ENDOCRINE/METABOLIC Hx Hyperthyroidism: Yes Hx Hypothyroidism: Yes - HEMATOLOGICAL/ONCOLOGICAL Hx Human Immunodeficiency Virus (HIV): No - INTEGUMENTARY Hx Dermatological Problems: No - MUSCULOSKELETAL/RHEUMATOLOGICAL Hx Musculoskeletal Disorders: No Hx Falls: No - GASTROINTESTINAL Hx Gastrointestinal Disorders: Yes Hx Bowel Surgery: Yes Other/Comment: Hx Anal Fissures - GENITOURINARY/GYNECOLOGICAL Hx Genitourinary Disorders: Yes - PSYCHIATRIC Hx Depression: Yes - SURGICAL HISTORY Hx Appendectomy: Yes (1976) - ANESTHESIA Hx Anesthesia: Yes Hx Anesthesia Reactions: No Meds Allergies/Adverse Reactions: Allergies Allergy/AdvReac Type Severity Reaction Status Date / Time No Known Allergies Allergy Verified 12/27/16 20:40 - Medications Medications: Current Medications Sodium Chloride (Sodium Chloride 0.9%) 1,000 mls @ 100 mls/hr IV .Q10H [facility] Stop: 05/04/17 12:23 Last Admin: 05/03/17 12:43 Dose: 100 mls/hr Ketorolac Tromethamine (Toradol) 15 mg IVP Q6 PRN PRN Reason: Pain, moderate (4-7) Last Admin: 05/03/17 13:48 Dose: 15 mg Ondansetron HCl (Zofran Inj) 4 mg IVP Q6 PRN PRN Reason: Nausea/Vomiting Last Admin: 05/03/17 13:48 Dose: 4 mg Pantoprazole Sodium (Protonix Inj) 40 mg IVP DAILY [facility] Physical Exam - Constitutional Appears: No Acute Distress, Unkempt, Older Than Stated Age - Head Exam Head Exam: ATRAUMATIC, NORMOCEPHALIC - Eye Exam Eye Exam: Normal appearance - ENT Exam ENT Exam: Mucous Membranes Dry - Respiratory Exam Respiratory Exam: NORMAL BREATHING PATTERN - Cardiovascular Exam Cardiovascular Exam: REGULAR RHYTHM - GI/Abdominal Exam GI & Abdominal Exam: Soft, Tenderness (epigastrium). absent: Distended, Firm, Guarding, Rebound, Rigid Additional comments: suprapubic scar from previous oblique scar in RLQ from previous appendectomy scar at umbilicus from previous laparoscopic surgery - Extremities Exam Extremities exam: Positive for: normal capillary refill, pedal pulses present. Negative for: calf tenderness - Back Exam Back exam: absent: CVA tenderness (L), CVA tenderness (R) - Neurological Exam Neurological exam: Alert, CN II-XII Intact, Oriented x3 - Psychiatric Exam Psychiatric exam: Normal Affect, Normal Mood - Skin Skin Exam: Dry, Intact, Pallor, Warm Results - Vital Signs Recent Vital Signs: Last Vital Signs Temp 98.4 F 05/03/17 13:56 Pulse 80 05/03/17 13:56 Resp 14 05/03/17 13:56 BP 108/67 05/03/17 13:56 Pulse Ox 100 05/03/17 13:56 - Labs Result Diagrams: 05/03/17 04:10 05/03/17 04:10 Assessment & Plan - Assessment and Plan (Free Text) Plan: 51 F PMH of CRC CA, s/p laparoscopic proctosigmoidectomy and gastroparesis with abdominal pain and n/v/d, possible partial SBO -CT abdomen/pelvis: multiple on mildly distended fluid filled loops of mid and distal small bowel which also exhibit minimal wall thickening. Additionally, there is also fluid seen throughout the entire colon. Rule out diarrheal illness. Possibility of a partial/ intermittent or early complete small bowel obstruction not completely excluded therefore followup on plain film radiographs of the abdomen to assess for passage of oral contrast material into the large bowel. Postoperative changes sigmoid colon with evidence of anastomosis associated with mild irregular wall thickening ; rule out recurrent tumor (see full report) -Obstructive Series: No acute cardiopulmonary disease. Rule out Mrs. early small bowel obstruction (see full report) -NPO -IVF -Anti-emetics/Analgesics -Stool studies -DW Dr. Melecio Mccrary PGY1
--- NOTE | 2017-05-03 21:08 | CP.PCM.HP ---
History of Present Illness - History of Present Illness History of Present Illness: A 51 year old female with history of colon cancer and gastroparesis was admitted for abdominal pain, nausea, vomiting and diarrhea for four or five days She has had a laparoscopic procto-sigmoidocolectomy at [facility] on September 2015. Her father had colon cancer when he was 45 years old. She started having colonoscopy every year after the age of 40. Recently she went to [facility] and had an EGD and a colonoscopy. She was found to have a cancer in rectum at the anastomosis site. The biopsy came back as 'high grade dysplasia (?). She was told to find a surgical and a medical oncologist. Recently, she had watery diarrhea and loose bowel movements. She came to ER and had CAT scan of abdomen which showed diarrheal illness or SBO. Present on Admission - Present on Admission Any Indicators Present on Admission: No History of DVT/PE: No History of Uncontrolled Diabetes: No Urinary Catheter: No Decubitus Ulcer Present: No Review of Systems - Cardiovascular Cardiovascular: absent: Chest Pain - Respiratory Respiratory: absent: Cough - Gastrointestinal Gastrointestinal: Abdominal Pain, Bloating, Diarrhea, Loose Stools, Vomiting - Genitourinary Genitourinary: absent: Difficulty Urinating Past Patient History - Infectious Disease Hx of Infectious Diseases: None - Past Medical History & Family History Past Medical History?: Yes - Past Social History Smoking Status: Never Smoked - CARDIAC Hx Hypercholesterolemia: Yes - PULMONARY Hx Respiratory Disorders: No (Former smoker) - NEUROLOGICAL Hx Neurological Disorder: No - HEENT Hx HEENT Problems: No - RENAL Hx Chronic Kidney Disease: Yes - ENDOCRINE/METABOLIC Hx Hyperthyroidism: Yes Hx Hypothyroidism: Yes - HEMATOLOGICAL/ONCOLOGICAL Hx Human Immunodeficiency Virus (HIV): No - INTEGUMENTARY Hx Dermatological Problems: No - MUSCULOSKELETAL/RHEUMATOLOGICAL Hx Musculoskeletal Disorders: No Hx Falls: No - GASTROINTESTINAL Hx Gastrointestinal Disorders: Yes Hx Bowel Surgery: Yes Other/Comment: Hx Anal Fissures - GENITOURINARY/GYNECOLOGICAL Hx Genitourinary Disorders: Yes - PSYCHIATRIC Hx Depression: Yes Hx Substance Use: No - SURGICAL HISTORY Hx Appendectomy: Yes (1976) - ANESTHESIA Hx Anesthesia: Yes Hx Anesthesia Reactions: No Meds Allergies/Adverse Reactions: Allergies Allergy/AdvReac Type Severity Reaction Status Date / Time No Known Allergies Allergy Verified 12/27/16 20:40 Physical Exam - Constitutional Appears: No Acute Distress - Respiratory Exam Respiratory Exam: Clear to Auscultation Bilateral - Cardiovascular Exam Cardiovascular Exam: REGULAR RHYTHM - GI/Abdominal Exam GI & Abdominal Exam: Normal Bowel Sounds, Soft, Tenderness (on epigastrium ( disproportionately)) Results - Vital Signs Recent Vital Signs: Last Vital Signs Temp 97.8 F 05/03/17 16:48 Pulse 71 05/03/17 16:48 Resp 20 05/03/17 16:48 BP 118/77 05/03/17 16:48 Pulse Ox 99 05/03/17 16:48 - Labs Result Diagrams: 05/04/17 06:50 05/04/17 06:50 Assessment & Plan - Assessment and Plan (Free Text) Assessment: R/O small bowel obstruction history of colon cancer surgery and gastroparesis diarrheal illness Plan: NPO now iv fluid pain control iv protonix antiemetics stool study surgery consult - pending - Date & Time Date: 05/03/17 Time: 21:11 Decision To Admit - Pt Status Changed To: Hospital Disposition Of: Inpatient - Admit Certification Admit to Inpatient:: After my assessment, the patient will require hospitalization for at least two midnights. This is because of the severity of symptoms shown, intensity of services needed, and/or the medical risk in this patient being treated as an outpatient. - . Bed Request Type: Med/Surg Admitting Physician: Dimas Dowell
[2017-05-04] MEDS: Sodium Chloride 0.9% 1,000 ML IV SCH ×2 (01:01→10:30)
--- NOTE | 2017-05-04 07:13 | CP.PCM.PN ---
Subjective - Date & Time of Evaluation Date of Evaluation: 05/04/17 Time of Evaluation: 07:11 - Subjective Subjective: Surgery: Dr. Majano Pt seen and examined. Abd pain remains unchanged. Described as gas like / contractions. She reports nausea overnight. No Vomiting. No Flatus/BM. She has been ambulating. Objective - Vital Signs/Intake and Output Vital Signs (last 24 hours): Temp Pulse Resp BP Pulse Ox 97.7 F 70 20 108/70 98 05/04/17 01:00 05/04/17 01:00 05/04/17 01:00 05/04/17 01:00 05/04/17 01:00 - Medications Medications: Current Medications Sodium Chloride (Sodium Chloride 0.9%) 1,000 mls @ 100 mls/hr IV .Q10H [facility] Stop: 05/04/17 12:23 Last Admin: 05/04/17 01:01 Dose: 100 mls/hr Ketorolac Tromethamine (Toradol) 15 mg IVP Q6 PRN PRN Reason: Pain, moderate (4-7) Last Admin: 05/03/17 21:22 Dose: 15 mg Morphine Sulfate (Morphine) 2 mg IVP Q6 PRN PRN Reason: Pain, severe (8-10) Last Admin: 05/04/17 00:58 Dose: 2 mg Ondansetron HCl (Zofran Inj) 4 mg IVP Q6 PRN PRN Reason: Nausea/Vomiting Last Admin: 05/03/17 13:48 Dose: 4 mg Pantoprazole Sodium (Protonix Inj) 40 mg IVP DAILY [facility] - Constitutional Appears: Non-toxic, No Acute Distress - Head Exam Head Exam: ATRAUMATIC, NORMOCEPHALIC - Eye Exam Eye Exam: EOMI. absent: Scleral icterus - ENT Exam ENT Exam: Mucous Membranes Moist, Normal External Ear Exam - Neck Exam Neck Exam: Full ROM - Respiratory Exam Respiratory Exam: NORMAL BREATHING PATTERN. absent: Accessory Muscle Use, Respiratory Distress - GI/Abdominal Exam GI & Abdominal Exam: Soft, Tenderness (epigastric). absent: Distended, Firm, Guarding, Rigid, Rebound - Extremities Exam Extremities Exam: absent: Calf Tenderness, Pedal Edema - Neurological Exam Neurological Exam: Alert, Awake, Oriented x3 Assessment and Plan - Assessment and Plan (Free Text) Assessment: 51F w. CRC and gastroparesis, s/p laparoscopic protctosigmoidectomy, now w. partial SBO -c/w bowel rest -F/u AM labs -F/U AXR, if contrast has progressed, ok to start CLD -IVF -pain meds -serial abd exams -DVT prophylaxis -d/w attending Jolie PGY3
[2017-05-04 07:25] LABS: HEMATOCRIT 35.9 % (34.0-47.0); MEAN CELL VOLUME 89.9 fl (81.0-99.0); MEAN CORPUSCULAR HEMOGLOBIN 29.3 pg (27.0-31.0); MEAN CORPUSCULAR HGB CONC 32.5 g/dL (33.0-37.0); RED CELL DISTRIBUTION WIDTH 13.8 % (11.5-14.5); WHITE BLOOD COUNT 4.2 K/uL (4.8-10.8)
[2017-05-04 07:34] LABS: ALB/GLOB RATIO 1.4 (1.0-2.1); ALKALINE PHOSPHATASE 111 U/L (38-126); ALT/SGPT 30 U/L (9-52); AST/SGOT 21 U/L (14-36); BILIRUBIN,TOTAL 0.5 mg/dl (0.2-1.3); BLOOD UREA NITROGEN 9 mg/dl (7-17); CALCIUM 9.3 mg/dL (8.4-10.2); CARBON DIOXIDE 25 mmol/L (22-30); CHLORIDE 108 mmol/L (98-107); GFR AFRICAN-AMERICAN > 60; GLUCOSE,RANDOM 81 mg/dL (65-105); POTASSIUM 3.9 MMOL/L (3.6-5.0); SODIUM 143 mmol/l (132-148); TOTAL PROTEIN 5.8 G/DL (6.3-8.2)
--- NOTE | 2017-05-04 07:47 | CP.PCM.PN ---
Subjective - Date & Time of Evaluation Date of Evaluation: 05/04/17 Time of Evaluation: 07:44 - Subjective Subjective: abdominal pain no BM yet she had injections of morphine for pain and zofran for nausea Objective - Vital Signs/Intake and Output Vital Signs (last 24 hours): Temp Pulse Resp BP Pulse Ox 97.7 F 70 20 108/70 98 05/04/17 01:00 05/04/17 01:00 05/04/17 01:00 05/04/17 01:00 05/04/17 01:00 - Medications Medications: Current Medications Heparin Sodium (Porcine) (Heparin) 5,000 units SC Q12 [facility] PRN Reason: Protocol Sodium Chloride (Sodium Chloride 0.9%) 1,000 mls @ 100 mls/hr IV .Q10H [facility] Stop: 05/04/17 12:23 Last Admin: 05/04/17 01:01 Dose: 100 mls/hr Ketorolac Tromethamine (Toradol) 15 mg IVP Q6 PRN PRN Reason: Pain, moderate (4-7) Last Admin: 05/03/17 21:22 Dose: 15 mg Morphine Sulfate (Morphine) 2 mg IVP Q6 PRN PRN Reason: Pain, severe (8-10) Last Admin: 05/04/17 07:14 Dose: 2 mg Ondansetron HCl (Zofran Inj) 4 mg IVP Q6 PRN PRN Reason: Nausea/Vomiting Last Admin: 05/04/17 07:14 Dose: 4 mg Pantoprazole Sodium (Protonix Inj) 40 mg IVP DAILY [facility] - Labs Labs: 05/04/17 06:50 05/04/17 06:50 - Constitutional Appears: No Acute Distress - Respiratory Exam Respiratory Exam: Clear to Ausculation Bilateral, NORMAL BREATHING PATTERN - Cardiovascular Exam Cardiovascular Exam: REGULAR RHYTHM. absent: Murmur - GI/Abdominal Exam GI & Abdominal Exam: Soft, Tenderness (epigastrium), Normal Bowel Sounds Assessment and Plan - Assessment and Plan (Free Text) Assessment: history of rectal cancer, menopause since five years ago recurrent rectal cancer R/O SBO or paralytic ileus diarrheal illness Plan: will start flagyl iv. oncology consult surgical follow up regarding SBO waiting for stool study clear liquid diet
[2017-05-04 08:15] LABS: CARCINOEMBRYONIC ANTIGEN 0.4 ng/mL (0-3.0)
[2017-05-04] MEDS ORDERED: metroNIDAZOLE 500mg/100ml NS 100 ML IVPB SCH (09:00)
--- NOTE | 2017-05-04 10:23 | RAD ---
PROCEDURE: Obstructive series 05/04/2017 HISTORY: SBO COMPARISON: Comparison made with prior obstructive series and CT scan abdomen pelvis both dated 05/03/2017 TECHNIQUE: Frontal radiograph of the chest, with upright and supine radiographs of the abdomen. . FINDINGS: Findings: Heart size within range of normal. Re- demonstrated is a small calcified granuloma right lung apex unchanged from prior study. Lung grider clear without infiltrate or effusion. No evidence of pneumothorax. No evidence of free intraperitoneal air seen under the diaphragmatic surfaces. Oral contrast (from prior CT scan abdomen and pelvis) material opacifies the ascending colon excluding a complete small bowel obstruction. Re- demonstrated are small elliptical shaped metallic densities within the wall of the distal stomach. . Impression: No acute cardiopulmonary disease. Stable small granuloma right lung apex. No evidence of acute bleed small bowel obstruction with oral contrast material from prior CT scan opacifying the right colon. No gross free air seen under the diaphragmatic surfaces. Please refer to prior CT scan of the abdomen pelvis for additional details
--- NOTE | 2017-05-04 12:23 | CP.PCM.CON ---
History of Present Illness - History of Present Illness History of Present Illness: 51 year old female with a history of colorectal cancer s/p LAR in 2016, recurrence of a polyp at the anastamosis site about 6 months post surgery s/p laser resection, found to have a suspicious lesion in the colon by colonoscopy in 04/2017, gastroparesis, admitted with N/V/D and abdominal pain. She reports to weightloss which she attributes to her gastroparesis. She is concerned about recurrence of her cancer but notes she is due for outpatient surgical f/u to discuss resection of the suspicious lesion. Past medical history: colorectal cancer, gastroperesis Past surgical history: low anterior resection Family history: Father had colon cancer Social history: She denies tobacco, alcohol, and illicit drug use. Allergies: NKA Review of systems: All remaining review of systems including HEENT, cardiovascular, respiratory, gastrointestinal, genitourinary, musculoskeletal, dermatologic, neurologic, and psychiatric are negative unless mentioned in the HPI. Past Patient History - Infectious Disease Hx of Infectious Diseases: None - Past Medical History & Family History Past Medical History?: Yes - Past Social History Smoking Status: Never Smoked - CARDIAC Hx Hypercholesterolemia: Yes - PULMONARY Hx Respiratory Disorders: No (Former smoker) - NEUROLOGICAL Hx Neurological Disorder: No - HEENT Hx HEENT Problems: No - RENAL Hx Chronic Kidney Disease: Yes - ENDOCRINE/METABOLIC Hx Hyperthyroidism: Yes Hx Hypothyroidism: Yes - HEMATOLOGICAL/ONCOLOGICAL Hx Human Immunodeficiency Virus (HIV): No - INTEGUMENTARY Hx Dermatological Problems: No - MUSCULOSKELETAL/RHEUMATOLOGICAL Hx Musculoskeletal Disorders: No Hx Falls: No - GASTROINTESTINAL Hx Gastrointestinal Disorders: Yes Hx Bowel Surgery: Yes Other/Comment: Hx Anal Fissures - GENITOURINARY/GYNECOLOGICAL Hx Genitourinary Disorders: Yes - PSYCHIATRIC Hx Depression: Yes Hx Substance Use: No - SURGICAL HISTORY Hx Appendectomy: Yes (1976) - ANESTHESIA Hx Anesthesia: Yes Hx Anesthesia Reactions: No Meds Allergies/Adverse Reactions: Allergies Allergy/AdvReac Type Severity Reaction Status Date / Time No Known Allergies Allergy Verified 12/27/16 20:40 - Medications Medications: Current Medications Heparin Sodium (Porcine) (Heparin) 5,000 units SC Q12 [facility] PRN Reason: Protocol Sodium Chloride (Sodium Chloride 0.9%) 1,000 mls @ 100 mls/hr IV .Q10H [facility] Stop: 05/04/17 12:23 Last Admin: 05/04/17 01:01 Dose: 100 mls/hr Ketorolac Tromethamine (Toradol) 15 mg IVP Q6 PRN PRN Reason: Pain, moderate (4-7) Last Admin: 05/03/17 21:22 Dose: 15 mg Metronidazole (Flagyl) 500 mg PO Q8 [facility] Morphine Sulfate (Morphine) 2 mg IVP Q6 PRN PRN Reason: Pain, severe (8-10) Last Admin: 05/04/17 07:14 Dose: 2 mg Ondansetron HCl (Zofran Inj) 4 mg IVP Q6 PRN PRN Reason: Nausea/Vomiting Last Admin: 05/04/17 07:14 Dose: 4 mg Pantoprazole Sodium (Protonix Inj) 40 mg IVP DAILY [facility] Last Admin: 05/04/17 08:12 Dose: 40 mg Tramadol HCl (Ultram) 50 mg PO Q4 PRN PRN Reason: Pain, moderate (4-7) Physical Exam - Head Exam Head Exam: ATRAUMATIC - Eye Exam Eye Exam: Normal appearance - ENT Exam ENT Exam: Mucous Membranes Dry - Respiratory Exam Respiratory Exam: NORMAL BREATHING PATTERN - Cardiovascular Exam Cardiovascular Exam: +S1, +S2 - GI/Abdominal Exam GI & Abdominal Exam: Normal Bowel Sounds - Extremities Exam Extremities exam: Positive for: normal inspection - Neurological Exam Neurological exam: Oriented x3 - Psychiatric Exam Psychiatric exam: Normal Affect, Normal Mood - Skin Skin Exam: Warm Results - Vital Signs Recent Vital Signs: Last Vital Signs Temp 97.7 F 05/04/17 09:00 Pulse 67 05/04/17 09:00 Resp 18 05/04/17 09:00 BP 106/70 05/04/17 09:00 Pulse Ox 97 05/04/17 09:00 - Labs Result Diagrams: 05/04/17 06:50 05/04/17 06:50 Assessment & Plan (1) Colon cancer Assessment and Plan: recurrent polyps new lesion found on colonoscopy concerning for recurrence of malignancy; scheduled for outpatient surgical f/u for resecton CEA normal outpatient f/u post resection to review pathology Status: Acute (2) Anemia Assessment and Plan: mild will check iron, b12, folate stores Status: Acute (3) Leukopenia Assessment and Plan: benign Thank you for this interesting consult. Status: Acute
[2017-05-04] MEDS ORDERED: Morphine 4 MG/ML VIAL IVP PRN (20:45)
[2017-05-05] MEDS: Levothyroxine 88 MCG TAB PO SCH (06:58)
--- NOTE | 2017-05-05 08:24 | CP.PCM.PN ---
Subjective - Date & Time of Evaluation Date of Evaluation: 05/05/17 Time of Evaluation: 08:21 - Subjective Subjective: abdominal pain nausea all the time constipation Objective - Vital Signs/Intake and Output Vital Signs (last 24 hours): Temp Pulse Resp BP Pulse Ox 97.5 F L 71 20 113/72 98 05/05/17 00:16 05/05/17 00:16 05/05/17 00:16 05/05/17 00:16 05/05/17 00:16 - Medications Medications: Current Medications Alprazolam (Xanax) 1 mg PO TID PRN PRN Reason: Anxiety Last Admin: 05/04/17 22:14 Dose: 1 mg Dicyclomine HCl (Bentyl) 10 mg PO QID [facility] Last Admin: 05/04/17 22:04 Dose: 10 mg Heparin Sodium (Porcine) (Heparin) 5,000 units SC Q12 [facility] PRN Reason: Protocol Last Admin: 05/04/17 21:45 Dose: 5,000 units Home Med (Vortioxetine Hydrobromide [Trintellix]) 20 mg PO DAILY [facility] Ketorolac Tromethamine (Toradol) 15 mg IVP Q6 PRN PRN Reason: Pain, moderate (4-7) Last Admin: 05/03/17 21:22 Dose: 15 mg Levothyroxine Sodium (Synthroid) 88 mcg PO DAILY@0630 [facility] Last Admin: 05/05/17 06:58 Dose: 88 mcg Metronidazole (Flagyl) 500 mg PO Q8 [facility] Last Admin: 05/05/17 01:33 Dose: 500 mg Morphine Sulfate (Morphine) 2 mg IVP Q4 PRN PRN Reason: Pain, severe (8-10) Last Admin: 05/05/17 03:37 Dose: 2 mg Ondansetron HCl (Zofran Inj) 4 mg IVP Q6 PRN PRN Reason: Nausea/Vomiting Last Admin: 05/05/17 03:37 Dose: 4 mg Pantoprazole Sodium (Protonix Inj) 40 mg IVP DAILY [facility] Last Admin: 05/04/17 08:12 Dose: 40 mg Tramadol HCl (Ultram) 50 mg PO Q4 PRN PRN Reason: Pain, moderate (4-7) Last Admin: 05/04/17 13:24 Dose: 50 mg - Constitutional Appears: No Acute Distress - Respiratory Exam Respiratory Exam: Clear to Ausculation Bilateral, NORMAL BREATHING PATTERN - Cardiovascular Exam Cardiovascular Exam: REGULAR RHYTHM. absent: Murmur - GI/Abdominal Exam GI & Abdominal Exam: Soft, Tenderness (epigastric area), Normal Bowel Sounds Assessment and Plan - Assessment and Plan (Free Text) Assessment: 51 year old female with history of procto-sigmoidocolectomy for colon cancer, gastroparesis abdominal pain partial SBO recurrent lesion on rectum Plan: as per oncology, out patient surgery follow up lactulose regular diet
--- NOTE | 2017-05-05 09:07 | CP.PCM.PN ---
Subjective - Date & Time of Evaluation Date of Evaluation: 05/05/17 Time of Evaluation: 09:05 - Subjective Subjective: Surgery: Dr. Majano Pt seen and examined. She still has intermittent cramping abd pain. She is tolerating CLD. No N/V. She is passing flatus. No BM. She feels like she needs to move her bowels. She would like to eat more. Objective - Vital Signs/Intake and Output Vital Signs (last 24 hours): Temp Pulse Resp BP Pulse Ox 97.8 F 62 18 114/74 99 05/05/17 08:47 05/05/17 08:47 05/05/17 08:47 05/05/17 08:47 05/05/17 08:47 - Medications Medications: Current Medications Alprazolam (Xanax) 1 mg PO TID PRN PRN Reason: Anxiety Last Admin: 05/04/17 22:14 Dose: 1 mg Dicyclomine HCl (Bentyl) 10 mg PO QID [facility] Last Admin: 05/05/17 08:29 Dose: 10 mg Heparin Sodium (Porcine) (Heparin) 5,000 units SC Q12 [facility] PRN Reason: Protocol Last Admin: 05/05/17 08:29 Dose: 5,000 units Home Med (Vortioxetine Hydrobromide [Trintellix]) 20 mg PO DAILY [facility] Ketorolac Tromethamine (Toradol) 15 mg IVP Q6 PRN PRN Reason: Pain, moderate (4-7) Last Admin: 05/03/17 21:22 Dose: 15 mg Lactulose (Enulose) 20 gm PO BID PRN PRN Reason: Constipation Last Admin: 05/05/17 08:47 Dose: 20 gm Levothyroxine Sodium (Synthroid) 88 mcg PO DAILY@0630 [facility] Last Admin: 05/05/17 06:58 Dose: 88 mcg Metronidazole (Flagyl) 500 mg PO Q8 [facility] Last Admin: 05/05/17 08:29 Dose: 500 mg Morphine Sulfate (Morphine) 2 mg IVP Q4 PRN PRN Reason: Pain, severe (8-10) Last Admin: 05/05/17 08:48 Dose: 2 mg Ondansetron HCl (Zofran Inj) 4 mg IVP Q6 PRN PRN Reason: Nausea/Vomiting Last Admin: 05/05/17 08:49 Dose: 4 mg Pantoprazole Sodium (Protonix Inj) 40 mg IVP DAILY [facility] Last Admin: 05/05/17 08:29 Dose: 40 mg Tramadol HCl (Ultram) 50 mg PO Q4 PRN PRN Reason: Pain, moderate (4-7) Last Admin: 05/04/17 13:24 Dose: 50 mg - Constitutional Appears: Non-toxic, No Acute Distress - Head Exam Head Exam: ATRAUMATIC, NORMOCEPHALIC - Eye Exam Eye Exam: EOMI - ENT Exam ENT Exam: Mucous Membranes Moist - Neck Exam Neck Exam: Full ROM - Respiratory Exam Respiratory Exam: NORMAL BREATHING PATTERN. absent: Accessory Muscle Use, Respiratory Distress - Cardiovascular Exam Cardiovascular Exam: REGULAR RHYTHM - GI/Abdominal Exam GI & Abdominal Exam: Soft. absent: Distended, Firm, Guarding, Rigid, Tenderness , Rebound - Extremities Exam Extremities Exam: absent: Calf Tenderness, Pedal Edema - Neurological Exam Neurological Exam: Alert, Awake, Oriented x3 - Psychiatric Exam Psychiatric exam: Anxious Assessment and Plan - Assessment and Plan (Free Text) Assessment: 51F w. CRC and gastroparesis, s/p laparoscopic protctosigmoidectomy, now w. partial SBO -AXR: contrast seen in R colon -will advance diet to full liquid -will give dulcolax suppository -monitor bowel fxn -serial abd exams -d/w attending Jolie PGY3
[2017-05-05] MEDS: Trimethobenzamide 200 mg/2 mL Inj IM PRN (20:15)
--- NOTE | 2017-05-05 20:19 | CP.PCM.PN ---
Subjective - Date & Time of Evaluation Date of Evaluation: 05/05/17 Time of Evaluation: 17:15 - Subjective Subjective: Feels nauseous Objective - Vital Signs/Intake and Output Vital Signs (last 24 hours): Temp Pulse Resp BP Pulse Ox 98.1 F 73 19 99/64 L 97 05/05/17 16:24 05/05/17 16:24 05/05/17 16:24 05/05/17 16:24 05/05/17 16:24 - Medications Medications: Current Medications Alprazolam (Xanax) 1 mg PO TID PRN PRN Reason: Anxiety Last Admin: 05/04/17 22:14 Dose: 1 mg Dicyclomine HCl (Bentyl) 10 mg PO QID [facility] Last Admin: 05/05/17 17:45 Dose: 10 mg Heparin Sodium (Porcine) (Heparin) 5,000 units SC Q12 [facility] PRN Reason: Protocol Last Admin: 05/05/17 08:29 Dose: 5,000 units Home Med (Vortioxetine Hydrobromide [Trintellix]) 20 mg PO DAILY [facility] Ketorolac Tromethamine (Toradol) 15 mg IVP Q6 PRN PRN Reason: Pain, moderate (4-7) Last Admin: 05/05/17 18:48 Dose: 15 mg Lactulose (Enulose) 20 gm PO BID PRN PRN Reason: Constipation Last Admin: 05/05/17 17:52 Dose: 20 gm Levothyroxine Sodium (Synthroid) 88 mcg PO DAILY@0630 [facility] Last Admin: 05/05/17 06:58 Dose: 88 mcg Metronidazole (Flagyl) 500 mg PO Q8 [facility] Last Admin: 05/05/17 17:45 Dose: 500 mg Morphine Sulfate (Morphine) 4 mg IVP Q4 PRN PRN Reason: Pain, severe (8-10) Ondansetron HCl (Zofran Inj) 4 mg IVP Q6 PRN PRN Reason: Nausea/Vomiting Last Admin: 05/05/17 17:44 Dose: 4 mg Pantoprazole Sodium (Protonix Inj) 40 mg IVP DAILY [facility] Last Admin: 05/05/17 08:29 Dose: 40 mg Tramadol HCl (Ultram) 50 mg PO Q4 PRN PRN Reason: Pain, moderate (4-7) Last Admin: 05/04/17 13:24 Dose: 50 mg Trimethobenzamide HCl (Tigan) 200 mg IM Q6 PRN PRN Reason: Nausea/Vomiting - Head Exam Head Exam: ATRAUMATIC - Eye Exam Eye Exam: Normal appearance - ENT Exam ENT Exam: Mucous Membranes Dry - Respiratory Exam Respiratory Exam: NORMAL BREATHING PATTERN - Cardiovascular Exam Cardiovascular Exam: +S1, +S2 - GI/Abdominal Exam GI & Abdominal Exam: Normal Bowel Sounds - Extremities Exam Extremities Exam: Normal Inspection Assessment and Plan (1) Colon cancer Assessment & Plan: recurrent concerning polyps scheduled for outpatient resection Status: Acute (2) Anemia Assessment & Plan: mild no transfusion indication Status: Acute (3) Leukopenia Assessment & Plan: benign Status: Acute
[2017-05-06] MEDS: Levothyroxine 88 MCG TAB PO SCH (07:11)
[2017-05-06 07:24] LABS: HEMATOCRIT 33.8 % (34.0-47.0); MEAN CELL VOLUME 88.9 fl (81.0-99.0); MEAN CORPUSCULAR HEMOGLOBIN 29.4 pg (27.0-31.0); RED CELL DISTRIBUTION WIDTH 13.9 % (11.5-14.5); WHITE BLOOD COUNT 4.9 K/uL (4.8-10.8)
[2017-05-06 07:33] LABS: ALB/GLOB RATIO 1.3 (1.0-2.1); ALKALINE PHOSPHATASE 131 U/L (38-126); ALT/SGPT 71 U/L (9-52); AST/SGOT 79 U/L (14-36); BILIRUBIN,TOTAL 0.2 mg/dl (0.2-1.3); BLOOD UREA NITROGEN 9 mg/dl (7-17); CARBON DIOXIDE 26 mmol/L (22-30); CHLORIDE 106 mmol/L (98-107); GFR AFRICAN-AMERICAN > 60; GLUCOSE,RANDOM 90 mg/dL (65-105); SODIUM 140 mmol/l (132-148); TOTAL PROTEIN 5.4 G/DL (6.3-8.2)
--- NOTE | 2017-05-06 08:30 | CP.PCM.PN ---
Subjective - Date & Time of Evaluation Date of Evaluation: 05/06/17 Time of Evaluation: 08:28 - Subjective Subjective: Surgery: Dr. Majano Pt seen and examined. Pain and nausea overnight. Improved after morphine increased and Tigan administered. Pt did have BM yesterday. Objective - Vital Signs/Intake and Output Vital Signs (last 24 hours): Temp Pulse Resp BP Pulse Ox 97.8 F 58 L 20 108/73 99 05/05/17 23:53 05/05/17 23:53 05/05/17 23:53 05/05/17 23:53 05/05/17 23:53 - Medications Medications: Current Medications Alprazolam (Xanax) 1 mg PO TID PRN PRN Reason: Anxiety Last Admin: 05/05/17 21:33 Dose: 1 mg Dicyclomine HCl (Bentyl) 10 mg PO QID [facility] Last Admin: 05/05/17 21:22 Dose: 10 mg Heparin Sodium (Porcine) (Heparin) 5,000 units SC Q12 [facility] PRN Reason: Protocol Last Admin: 05/05/17 21:19 Dose: 5,000 units Home Med (Vortioxetine Hydrobromide [Trintellix]) 20 mg PO DAILY [facility] Ketorolac Tromethamine (Toradol) 15 mg IVP Q6 PRN PRN Reason: Pain, moderate (4-7) Last Admin: 05/05/17 18:48 Dose: 15 mg Lactulose (Enulose) 20 gm PO BID PRN PRN Reason: Constipation Last Admin: 05/05/17 17:52 Dose: 20 gm Levothyroxine Sodium (Synthroid) 88 mcg PO DAILY@0630 [facility] Last Admin: 05/06/17 07:11 Dose: 88 mcg Metronidazole (Flagyl) 500 mg PO Q8 [facility] Last Admin: 05/06/17 00:29 Dose: 500 mg Morphine Sulfate (Morphine) 4 mg IVP Q4 PRN PRN Reason: Pain, severe (8-10) Last Admin: 05/05/17 23:51 Dose: 4 mg Ondansetron HCl (Zofran Inj) 4 mg IVP Q6 PRN PRN Reason: Nausea/Vomiting Last Admin: 05/05/17 17:44 Dose: 4 mg Pantoprazole Sodium (Protonix Inj) 40 mg IVP DAILY [facility] Last Admin: 05/05/17 08:29 Dose: 40 mg Tramadol HCl (Ultram) 50 mg PO Q4 PRN PRN Reason: Pain, moderate (4-7) Last Admin: 05/05/17 20:36 Dose: 50 mg Trimethobenzamide HCl (Tigan) 200 mg IM Q6 PRN PRN Reason: Nausea/Vomiting Last Admin: 05/05/17 20:15 Dose: 200 mg - Labs Labs: 05/06/17 05:30 05/06/17 05:30 - Constitutional Appears: Non-toxic, No Acute Distress - Head Exam Head Exam: ATRAUMATIC, NORMOCEPHALIC - Eye Exam Eye Exam: EOMI. absent: Scleral icterus - ENT Exam ENT Exam: Mucous Membranes Moist - Neck Exam Neck Exam: Full ROM - Respiratory Exam Respiratory Exam: NORMAL BREATHING PATTERN. absent: Accessory Muscle Use, Respiratory Distress - GI/Abdominal Exam GI & Abdominal Exam: Soft, Tenderness (diffuse, mild). absent: Distended, Firm , Guarding, Rigid, Rebound - Extremities Exam Extremities Exam: absent: Calf Tenderness, Pedal Edema - Neurological Exam Neurological Exam: Alert, Awake, Oriented x3 Assessment and Plan - Assessment and Plan (Free Text) Assessment: 51F w. CRC and gastroparesis, s/p laparoscopic protctosigmoidectomy, now w. partial SBO -AXR: contrast seen in R colon -c/w FLD -Morphine increased -Tigan given for nausea -serial abd exams -monitor bowel fxn -d/w attending Loganitis PGY3
--- NOTE | 2017-05-06 12:57 | CP.PCM.PN ---
Subjective - Date & Time of Evaluation Date of Evaluation: 05/06/17 Time of Evaluation: 12:55 - Subjective Subjective: abdominal pain back pain nausea yesterday, and she got a tigan IM injection Objective - Vital Signs/Intake and Output Vital Signs (last 24 hours): Temp Pulse Resp BP Pulse Ox 97.9 F 61 20 115/73 97 05/06/17 08:34 05/06/17 08:34 05/06/17 08:34 05/06/17 08:34 05/06/17 08:34 - Medications Medications: Current Medications Alprazolam (Xanax) 1 mg PO TID PRN PRN Reason: Anxiety Last Admin: 05/05/17 21:33 Dose: 1 mg Dicyclomine HCl (Bentyl) 10 mg PO QID [facility] Last Admin: 05/06/17 08:42 Dose: 10 mg Heparin Sodium (Porcine) (Heparin) 5,000 units SC Q12 [facility] PRN Reason: Protocol Last Admin: 05/06/17 08:43 Dose: 5,000 units Home Med (Vortioxetine Hydrobromide [Trintellix]) 20 mg PO DAILY [facility] Ketorolac Tromethamine (Toradol) 15 mg IVP Q6 PRN PRN Reason: Pain, moderate (4-7) Last Admin: 05/05/17 18:48 Dose: 15 mg Levothyroxine Sodium (Synthroid) 88 mcg PO DAILY@0630 [facility] Last Admin: 05/06/17 07:11 Dose: 88 mcg Metronidazole (Flagyl) 500 mg PO Q8 [facility] Last Admin: 05/06/17 08:42 Dose: 500 mg Morphine Sulfate (Morphine) 4 mg IVP Q4 PRN PRN Reason: Pain, severe (8-10) Last Admin: 05/06/17 08:34 Dose: 4 mg Ondansetron HCl (Zofran Inj) 4 mg IVP Q6 PRN PRN Reason: Nausea/Vomiting Last Admin: 05/06/17 08:36 Dose: 4 mg Pantoprazole Sodium (Protonix Inj) 40 mg IVP DAILY [facility] Last Admin: 05/06/17 08:43 Dose: 40 mg Tramadol HCl (Ultram) 50 mg PO Q4 PRN PRN Reason: Pain, moderate (4-7) Last Admin: 05/05/17 20:36 Dose: 50 mg Trimethobenzamide HCl (Tigan) 200 mg IM Q6 PRN PRN Reason: Nausea/Vomiting Last Admin: 05/05/17 20:15 Dose: 200 mg - Labs Labs: 05/06/17 05:30 05/06/17 05:30 - Constitutional Appears: No Acute Distress - Respiratory Exam Respiratory Exam: NORMAL BREATHING PATTERN - Cardiovascular Exam Cardiovascular Exam: REGULAR RHYTHM. 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
[2017-05-06] MEDS: Trimethobenzamide 200 mg/2 mL Inj IM PRN (14:01)
--- NOTE | 2017-05-06 21:22 | CP.PCM.PN ---
Subjective - Date & Time of Evaluation Date of Evaluation: 05/06/17 Time of Evaluation: 17:40 - Subjective Subjective: Has some nausea and abdominal pain Pt reports she would like to see a surgeon from [place] in regards to her colon cancer/colon polyps Objective - Vital Signs/Intake and Output Vital Signs (last 24 hours): Temp Pulse Resp BP Pulse Ox 98.2 F 86 18 136/82 99 05/06/17 16:25 05/06/17 16:25 05/06/17 16:25 05/06/17 16:25 05/06/17 16:25 - Medications Medications: Current Medications Alprazolam (Xanax) 1 mg PO TID PRN PRN Reason: Anxiety Last Admin: 05/05/17 21:33 Dose: 1 mg Dicyclomine HCl (Bentyl) 10 mg PO QID [facility] Last Admin: 05/06/17 17:40 Dose: 10 mg Heparin Sodium (Porcine) (Heparin) 5,000 units SC Q12 [facility] PRN Reason: Protocol Last Admin: 05/06/17 21:11 Dose: 5,000 units Home Med (Vortioxetine Hydrobromide [Trintellix]) 20 mg PO DAILY [facility] Ketorolac Tromethamine (Toradol) 15 mg IVP Q6 PRN PRN Reason: Pain, moderate (4-7) Last Admin: 05/05/17 18:48 Dose: 15 mg Levothyroxine Sodium (Synthroid) 88 mcg PO DAILY@0630 [facility] Last Admin: 05/06/17 07:11 Dose: 88 mcg Metronidazole (Flagyl) 500 mg PO Q8 [facility] Last Admin: 05/06/17 17:40 Dose: 500 mg Morphine Sulfate (Morphine) 4 mg IVP Q4 PRN PRN Reason: Pain, severe (8-10) Last Admin: 05/06/17 15:16 Dose: 4 mg Ondansetron HCl (Zofran Inj) 4 mg IVP Q6 PRN PRN Reason: Nausea/Vomiting Last Admin: 05/06/17 21:01 Dose: 4 mg Pantoprazole Sodium (Protonix Inj) 40 mg IVP DAILY [facility] Last Admin: 05/06/17 08:43 Dose: 40 mg Tramadol HCl (Ultram) 50 mg PO Q4 PRN PRN Reason: Pain, moderate (4-7) Last Admin: 05/05/17 20:36 Dose: 50 mg Trimethobenzamide HCl (Tigan) 200 mg IM Q6 PRN PRN Reason: Nausea/Vomiting Last Admin: 05/06/17 14:01 Dose: 200 mg - Labs Labs: 05/06/17 05:30 05/06/17 05:30 - Head Exam Head Exam: ATRAUMATIC - Eye Exam Eye Exam: Normal appearance - ENT Exam ENT Exam: Mucous Membranes Dry - Respiratory Exam Respiratory Exam: NORMAL BREATHING PATTERN - Cardiovascular Exam Cardiovascular Exam: +S1, +S2 - GI/Abdominal Exam GI & Abdominal Exam: Normal Bowel Sounds - Extremities Exam Extremities Exam: Normal Inspection Assessment and Plan (1) Colon cancer Assessment & Plan: recurrent polyps ? malignancy pt reports she would like to f/u with a surgeon from [facility] for treatment Status: Acute (2) Anemia Assessment & Plan: mild Status: Acute (3) Leukopenia Assessment & Plan: resolved Status: Acute
[2017-05-07 01:16] VITALS: RESP 18
[2017-05-07] MEDS: Levothyroxine 88 MCG TAB PO SCH (06:25)
--- NOTE | 2017-05-07 07:27 | CP.PCM.PN ---
Subjective - Date & Time of Evaluation Date of Evaluation: 05/07/17 Time of Evaluation: 07:25 - Subjective Subjective: Surgery: Dr. Majano Pt seen and examined. Pt states that she had one episode of emesis yesterday. No nausea this AM. She has not had BM since sunday. She continue to have epigastric pain. Objective - Vital Signs/Intake and Output Vital Signs (last 24 hours): Temp Pulse Resp BP Pulse Ox 97.9 F 63 18 117/79 99 05/07/17 00:50 05/07/17 00:50 05/07/17 00:50 05/07/17 00:50 05/07/17 00:50 - Medications Medications: Current Medications Alprazolam (Xanax) 1 mg PO TID PRN PRN Reason: Anxiety Last Admin: 05/06/17 23:19 Dose: 1 mg Dicyclomine HCl (Bentyl) 10 mg PO QID [facility] Last Admin: 05/06/17 21:35 Dose: 10 mg Heparin Sodium (Porcine) (Heparin) 5,000 units SC Q12 [facility] PRN Reason: Protocol Last Admin: 05/06/17 21:11 Dose: 5,000 units Home Med (Vortioxetine Hydrobromide [Trintellix]) 20 mg PO DAILY [facility] Ketorolac Tromethamine (Toradol) 15 mg IVP Q6 PRN PRN Reason: Pain, moderate (4-7) Last Admin: 05/06/17 21:38 Dose: 15 mg Levothyroxine Sodium (Synthroid) 88 mcg PO DAILY@0630 [facility] Last Admin: 05/07/17 06:25 Dose: 88 mcg Metronidazole (Flagyl) 500 mg PO Q8 [facility] Last Admin: 05/07/17 00:32 Dose: 500 mg Morphine Sulfate (Morphine) 4 mg IVP Q4 PRN PRN Reason: Pain, severe (8-10) Last Admin: 05/07/17 02:39 Dose: 4 mg Ondansetron HCl (Zofran Inj) 4 mg IVP Q6 PRN PRN Reason: Nausea/Vomiting Last Admin: 05/06/17 21:01 Dose: 4 mg Pantoprazole Sodium (Protonix Inj) 40 mg IVP DAILY [facility] Last Admin: 05/06/17 08:43 Dose: 40 mg Tramadol HCl (Ultram) 50 mg PO Q4 PRN PRN Reason: Pain, moderate (4-7) Last Admin: 05/05/17 20:36 Dose: 50 mg Trimethobenzamide HCl (Tigan) 200 mg IM Q6 PRN PRN Reason: Nausea/Vomiting Last Admin: 05/06/17 14:01 Dose: 200 mg - Labs Labs: 05/06/17 05:30 05/06/17 05:30 - Constitutional Appears: Non-toxic, No Acute Distress - Head Exam Head Exam: ATRAUMATIC, NORMOCEPHALIC - Eye Exam Eye Exam: EOMI. absent: Scleral icterus - Neck Exam Neck Exam: Full ROM - Respiratory Exam Respiratory Exam: NORMAL BREATHING PATTERN. absent: Accessory Muscle Use, Respiratory Distress - GI/Abdominal Exam GI & Abdominal Exam: Soft, Tenderness (epigastric). absent: Distended, Firm, Guarding, Rigid, Rebound - Neurological Exam Neurological Exam: Alert, Awake, Oriented x3 - Psychiatric Exam Psychiatric exam: Normal Affect, Normal Mood - Skin Skin Exam: Dry, Normal Color, Warm Assessment and Plan - Assessment and Plan (Free Text) Assessment: 51F w. CRC and gastroparesis, s/p laparoscopic protctosigmoidectomy, now w. partial SBO -AXR: contrast seen in R colon -Tigan/zofran for nausea -c/w pain management -will try erythromycin as prokinetic -serial abd exams -monitor bowel fxn -d/w attending Jolie PGY3
[2017-05-07 07:28] VITALS: BP 116/73; PULSE 56; TEMP 98.1
--- NOTE | 2017-05-07 07:56 | CP.PCM.PN ---
Subjective - Date & Time of Evaluation Date of Evaluation: 05/07/17 Time of Evaluation: 07:53 - Subjective Subjective: abdominal pain bloating yesterday pain, nausea, vomiting she had xanax, ultram, zofran Objective - Vital Signs/Intake and Output Vital Signs (last 24 hours): Temp Pulse Resp BP Pulse Ox 98.1 F 56 L 18 116/73 99 05/07/17 07:27 05/07/17 07:27 05/07/17 07:27 05/07/17 07:27 05/07/17 07:27 - Medications Medications: Current Medications Alprazolam (Xanax) 1 mg PO TID PRN PRN Reason: Anxiety Last Admin: 05/06/17 23:19 Dose: 1 mg Dicyclomine HCl (Bentyl) 10 mg PO QID [facility] Last Admin: 05/06/17 21:35 Dose: 10 mg Erythromycin (Erythocin) 250 mg PO Q6 [facility] Heparin Sodium (Porcine) (Heparin) 5,000 units SC Q12 [facility] PRN Reason: Protocol Last Admin: 05/06/17 21:11 Dose: 5,000 units Home Med (Vortioxetine Hydrobromide [Trintellix]) 20 mg PO DAILY [facility] Ketorolac Tromethamine (Toradol) 15 mg IVP Q6 PRN PRN Reason: Pain, moderate (4-7) Last Admin: 05/06/17 21:38 Dose: 15 mg Levothyroxine Sodium (Synthroid) 88 mcg PO DAILY@0630 [facility] Last Admin: 05/07/17 06:25 Dose: 88 mcg Metronidazole (Flagyl) 500 mg PO Q8 [facility] Last Admin: 05/07/17 00:32 Dose: 500 mg Morphine Sulfate (Morphine) 4 mg IVP Q4 PRN PRN Reason: Pain, severe (8-10) Last Admin: 05/07/17 02:39 Dose: 4 mg Ondansetron HCl (Zofran Inj) 4 mg IVP Q6 PRN PRN Reason: Nausea/Vomiting Last Admin: 05/06/17 21:01 Dose: 4 mg Pantoprazole Sodium (Protonix Inj) 40 mg IVP DAILY [facility] Last Admin: 05/06/17 08:43 Dose: 40 mg Tramadol HCl (Ultram) 50 mg PO Q4 PRN PRN Reason: Pain, moderate (4-7) Last Admin: 05/05/17 20:36 Dose: 50 mg Trimethobenzamide HCl (Tigan) 200 mg IM Q6 PRN PRN Reason: Nausea/Vomiting Last Admin: 05/06/17 14:01 Dose: 200 mg - Labs Labs: 05/06/17 05:30 05/06/17 05:30 - Constitutional Appears: No Acute Distress - Respiratory Exam Respiratory Exam: Clear to Ausculation Bilateral, NORMAL BREATHING PATTERN - Cardiovascular Exam Cardiovascular Exam: REGULAR RHYTHM. absent: Murmur - GI/Abdominal Exam GI & Abdominal Exam: Soft, Tenderness (epigastric (she did not let me touch epigastrium for pain)) Assessment and Plan - Assessment and Plan (Free Text) Assessment: 51 year old female, history of laparoscopic procto-sgimoidectomy recurrent CRC partial SBO gastroparesis unexplained abdominal pain constipation due to pain medicines ? Plan: D/C home today follow up as an out patient out patient consult for surgical and medical oncology
[2017-05-07] MEDS ORDERED: Erythromycin Stearat 250 mg Tab PO SCH (10:00)
[2017-05-08] MEDS ORDERED: Pantoprazole 40 mg EC Tab PO SCH (09:00)
[2017-05-10 11:42] VITALS: O2SAT 100
== END 2017-05-07 14:07 | disposition home or self-care (01) | DRG 389 ==
LOC: H.ER 03:43 → H.EROBSV 06:47 → H.ERHOLD 12:16 → H.MEDSURG1 14:58 → OBSVTOIN 05-04 07:42 → UNDODISIN 05-04 16:23 → H.MEDSURG1 05-04 17:08
PROVIDERS: ADMIT Internal Medicine; ATTEND Internal Medicine
DX: K56.60 Unspecified intestinal obstruction (principal); C20 Malignant neoplasm of rectum; K31.84 Gastroparesis; D64.9 Anemia, unspecified; E05.90 Thyrotoxicosis, unspecified without thyrotoxic crisis or storm; F32.9 Major depressive disorder, single episode, unspecified; E03.9 Hypothyroidism, unspecified; D72.819 Decreased white blood cell count, unspecified; E78.00 Pure hypercholesterolemia, unspecified; N18.9 Chronic kidney disease, unspecified; Z79.82 Long term (current) use of aspirin; Z80.0 Family history of malignant neoplasm of digestive organs; Z85.048 Personal history of other malignant neoplasm of rectum, rectosigmoid junction, and anus; Z87.891 Personal history of nicotine dependence; Z90.49 Acquired absence of other specified parts of digestive tract